=== PATIENT | female | born 1980 | race Caucasian/White ===

== ENCOUNTER 2018-06-17 17:21 | Inpatient (IN) | payer MEDICAID, OTHER ==
[2018-06-17] MEDS ORDERED: BRETHINE SUB-Q PRN (19:01)
[2018-06-17] MEDS ORDERED: BRETHINE IVP PRN (19:01)
[2018-06-17] MEDS ORDERED: XYLOCAINE 2% INFILTRATI ONE (19:01)
[2018-06-17] MEDS ORDERED: NARCAN 0.4 MG/1 ML IV PRN (19:01)
[2018-06-17] MEDS ORDERED: STADOL IV PRN (19:01)
[2018-06-17] MEDS ORDERED: MINERAL OIL PO PRN (19:01)
[2018-06-17] MEDS ORDERED: NORMODYNE IV ONE (19:05)
--- NOTE | 2018-06-17 19:11 | History and Physical Report ---
History of Present Illness Date of examination: 06/17/18 Date of admission: 06/17/18 Chief complaint: SIUP at 38 weeks with superimposed pre-eclampsia History of present illness: Patient is a 38 year old , LMP 09/04/17, EDC 06/19/18 at 38 weeks and 2 days gestation who presented to triage complaining of having severe headache and blurry since early this AM. She has a history of chronic HTN and is not on any medication. She receives PNC at [facility] clinic. In triage, her BP was 177/109. She denies any fluid leakage or bleeding. She reports good movement. tracing is CAT1. Cervix: 3 cm/60%/-2. Her Quad screen was positive for Trisomy 18. She was referred to [facility], but she declined amniocentesis. Past History Past Medical History: hypertension Past Surgical History: no surgical history Family/Genetic History: none Social history: no significant social history - Obstetrical History Expected Date of Delivery: 06/29/18 Actual Gestation: 38 Week(s) 2 Day(s) : 7 Para: 3 Spontaneous Abortions: 3 Number of Living Children: 3 Medications and Allergies Allergies Allergy/AdvReac Type Severity Reaction Status Date / Time Penicillins Allergy Itching Verified 06/17/18 19:17 - Vital Signs Vital signs: Vital Signs Pulse BP 95 H 177/109 06/17/18 18:42 06/17/18 18:42 Temp Pulse Resp BP Pulse Ox 94 H 153/84 06/17/18 18:57 06/17/18 18:57 - Physical Exam Cardiovascular: Normal S1, Normal S2 Lungs: Positive: Clear to auscultation Vulva: both: normal Deep Tendon Reflex Grade: Normal but brisk +3 - Obstetrical FHR: category 1 Uterine Contraction Monitor Mode: External Cervical Dilatation: 3 Cervical Effacement Percentage: 60 station: -2 Uterine Contraction Pattern: Irregular Uterine Contraction Intensity: Moderate Results Result Diagrams: 06/17/18 19:00 06/17/18 19:00 All other labs normal. Assessment and Plan - Patient Problems (1) 38 weeks gestation of Current Visit: Yes Status: Acute (2) Pre-eclampsia added to pre-existing hypertension Current Visit: Yes Status: Acute Plan to address problem: Admit to labor floor. IV hydration. Toxemia labs. Magnesium sulfate STAT. Monitor Mg levels, urine output, DTRs. Labetolol IV for diastolic BP>100. Labetolol PO 200 mg BID for BP control. monitoring. Will induce labor with pitocin. (3) Positive GBS test Current Visit: Yes Status: Acute Plan to address problem: Allergic to PCN. Will give clindamycin IV. (4) Advanced maternal age (AMA) in Current Visit: Yes Status: Acute (5) Abnormal quad screen Current Visit: Yes Status: Acute Plan to address problem: Patient was offered referral to [facility], but she declined amniocentesis.
[2018-06-17 19:25] LABS: Bacteria,Urine 3+ /HPF (Negative); Bilirubin,Urine NEG (Negative); Blood,Urine NEG (Negative); Calcium Oxalate Crystals,Urine 1+; Color,Urine Yellow (Yellow); Mucus,Urine FEW /HPF; Urobilinogen,Urine < 2.0 mg/dL (<2.0)
[2018-06-17 19:57] LABS: Hematocrit 37.7 % (30.3-42.9); Hemoglobin 12.2 gm/dl (10.1-14.3); Mean Corpuscular HGB Conc 32 % (30-34); Mean Corpuscular Volume 79 fl (79-97); Platelet Count 190 K/mm3 (140-440); Red Blood Count 4.74 M/mm3 (3.65-5.03); Red Cell Distribution Width 15.2 % (13.2-15.2)
[2018-06-17] MEDS ORDERED: PITOCin/NS 30 UNIT/500ML 30 UNITS/500 ML BAG IV SCH ×2 (20:00)
[2018-06-17] MEDS ORDERED: PITOCin/NS 20 UNIT/1000ML DRIP 20 UNITS/1,000 ML BAG IV SCH (20:00)
[2018-06-17] MEDS ORDERED: MAGNESIUM SULFATE 40GM/1000ML 40 GM/1,000 ML BAG IV SCH (20:10)
[2018-06-17] MEDS ORDERED: MAGNESIUM SULFATE 4GM/100ML 4 GM/100 ML BAG IV ONE (20:10)
[2018-06-17 20:20] LABS: Alanine Aminotransferase 6 units/L (7-56); Uric Acid 4.9 mg/dL (3.5-7.6)
[2018-06-17] MEDS: NORMODYNE PO SCH (20:22)
[2018-06-17] MEDS: LACTATED RINGERS 1,000 ML IV SCH (20:24)
[2018-06-17] MEDS: CLEOCIN 900 MG/50 mL 900 MG/50 ML BAG IV SCH (20:24)
[2018-06-17] MEDS ORDERED: PERCOCET 5/325 PO ONE (23:27)
[2018-06-18] MEDS: CLEOCIN 900 MG/50 mL 900 MG/50 ML BAG IV SCH (04:31)
[2018-06-18] MEDS: LACTATED RINGERS 1,000 ML IV SCH (06:12)
--- NOTE | 2018-06-18 08:41 | Progress Note ---
Assessment and Plan A: IUP @ 38 1/7 Weeks Category I Tracing CHTN with Superimposed PIH Meconium Stained Fluids GBS Positive P: AROM Continue Pitocin Induction Continue GBS Prophylaxis Continue MagSO4 Subjective - Subjective Date of service: 06/18/18 Patient reports: movement normal, contractions, other (States she desires natural labor and delivery; declines IV pain meds and epidural) Objective - Vital Signs Vital Signs: Vital Signs - 12hr 06/17/18 06/17/18 06/17/18 20:38 20:39 20:40 Temperature Pulse Rate 100 H 109 H 104 H Respiratory Rate Blood Pressure 174/83 140/89 Blood Pressure [Right] O2 Sat by Pulse 98 Oximetry 06/17/18 06/17/18 06/17/18 20:44 20:45 20:49 Temperature Pulse Rate 109 H 106 H 106 H Respiratory Rate Blood Pressure 139/81 Blood Pressure [Right] O2 Sat by Pulse 98 98 Oximetry 06/17/18 06/17/18 06/17/18 20:50 20:54 20:55 Temperature Pulse Rate 103 H 100 H 100 H Respiratory Rate Blood Pressure 156/81 146/78 Blood Pressure [Right] O2 Sat by Pulse 98 Oximetry 06/17/18 06/17/18 06/17/18 20:59 21:01 21:04 Temperature Pulse Rate 100 H 101 H 95 H Respiratory Rate Blood Pressure 154/83 Blood Pressure [Right] O2 Sat by Pulse 99 98 Oximetry 06/17/18 06/17/18 06/17/18 21:06 21:09 21:10 Temperature Pulse Rate 102 H 100 H 95 H Respiratory Rate Blood Pressure 134/78 150/83 Blood Pressure [Right] O2 Sat by Pulse 99 Oximetry 06/17/18 06/17/18 06/17/18 21:14 21:15 21:19 Temperature Pulse Rate 104 H 102 H 99 H Respiratory Rate Blood Pressure 150/82 Blood Pressure [Right] O2 Sat by Pulse 98 99 Oximetry 06/17/18 06/17/18 06/17/18 21:21 21:24 21:28 Temperature Pulse Rate 101 H 104 H 96 H Respiratory Rate Blood Pressure 152/89 135/77 Blood Pressure [Right] O2 Sat by Pulse 99 Oximetry 06/17/18 06/17/18 06/17/18 21:29 21:32 21:34 Temperature Pulse Rate 99 H 97 H 99 H Respiratory Rate Blood Pressure 143/79 Blood Pressure [Right] O2 Sat by Pulse 98 98 Oximetry 06/17/18 06/17/18 06/17/18 21:37 21:39 21:40 Temperature Pulse Rate 93 H 97 H 93 H Respiratory Rate Blood Pressure 141/81 142/79 Blood Pressure [Right] O2 Sat by Pulse 97 Oximetry 06/17/18 06/17/18 06/17/18 21:44 21:49 21:54 Temperature Pulse Rate 96 H 91 H 92 H Respiratory Rate Blood Pressure Blood Pressure [Right] O2 Sat by Pulse 99 98 98 Oximetry 06/17/18 06/17/18 06/17/18 21:56 21:59 22:04 Temperature Pulse Rate 77 61 89 Respiratory Rate Blood Pressure 95/50 Blood Pressure [Right] O2 Sat by Pulse 97 97 Oximetry 06/17/18 06/17/18 06/17/18 22:09 22:11 22:14 Temperature Pulse Rate 81 73 88 Respiratory Rate Blood Pressure 87/47 Blood Pressure [Right] O2 Sat by Pulse 97 97 Oximetry 06/17/18 06/17/18 06/17/18 22:19 22:24 22:25 Temperature Pulse Rate 87 81 80 Respiratory Rate Blood Pressure 88/49 Blood Pressure [Right] O2 Sat by Pulse 97 97 Oximetry 06/17/18 06/17/18 06/17/18 22:26 22:29 22:34 Temperature Pulse Rate 78 81 86 Respiratory Rate Blood Pressure 84/49 Blood Pressure [Right] O2 Sat by Pulse 97 97 Oximetry 06/17/18 06/17/18 06/17/18 22:39 22:41 22:44 Temperature Pulse Rate 89 84 88 Respiratory Rate Blood Pressure 109/57 Blood Pressure [Right] O2 Sat by Pulse 98 96 Oximetry 06/17/18 06/17/18 06/17/18 22:49 22:54 22:59 Temperature Pulse Rate 87 88 88 Respiratory Rate Blood Pressure Blood Pressure [Right] O2 Sat by Pulse 97 97 98 Oximetry 06/17/18 06/17/18 06/17/18 23:04 23:09 23:13 Temperature Pulse Rate 86 80 79 Respiratory Rate Blood Pressure 118/63 Blood Pressure [Right] O2 Sat by Pulse 97 97 Oximetry 06/17/18 06/17/18 06/17/18 23:14 23:19 23:24 Temperature Pulse Rate 83 77 81 Respiratory Rate Blood Pressure Blood Pressure [Right] O2 Sat by Pulse 97 97 97 Oximetry 06/17/18 06/17/18 06/17/18 23:29 23:34 23:39 Temperature Pulse Rate 90 88 95 H Respiratory Rate Blood Pressure Blood Pressure [Right] O2 Sat by Pulse 97 95 97 Oximetry 06/17/18 06/17/18 06/17/18 23:44 23:49 23:51 Temperature 97.1 F L Pulse Rate 87 89 85 Respiratory 18 Rate Blood Pressure 106/59 Blood Pressure 109/57 [Right] O2 Sat by Pulse 97 95 Oximetry 06/17/18 06/17/18 06/17/18 23:53 23:54 23:58 Temperature Pulse Rate 85 84 92 H Respiratory Rate Blood Pressure 109/57 Blood Pressure [Right] O2 Sat by Pulse 96 93 Oximetry 06/18/18 06/18/18 06/18/18 00:54 01:53 02:53 Temperature Pulse Rate 86 90 93 H Respiratory Rate Blood Pressure 124/68 122/68 121/67 Blood Pressure [Right] O2 Sat by Pulse Oximetry 06/18/18 06/18/18 06/18/18 03:53 04:29 04:30 Temperature 96.7 F L Pulse Rate 94 H 98 H 98 H Respiratory 18 Rate Blood Pressure 143/82 166/70 Blood Pressure 166/70 [Right] O2 Sat by Pulse Oximetry 06/18/18 06/18/18 06/18/18 04:53 05:53 06:53 Temperature Pulse Rate 111 H 100 H 101 H Respiratory Rate Blood Pressure 128/75 133/76 119/70 Blood Pressure [Right] O2 Sat by Pulse Oximetry 06/18/18 06/18/18 06/18/18 07:29 07:59 08:30 Temperature 97.4 F L Pulse Rate 70 96 H 96 H Respiratory Rate Blood Pressure 139/66 149/84 138/90 Blood Pressure [Right] O2 Sat by Pulse Oximetry - Exam Breasts: normal Cardiovascular: Regular rate Lungs: Clear to auscultation, Normal air movement Abdomen: Present: normal appearance, soft Uterus: Present: normal, firm, fundal height above umbilicus FHR: category 1 Uterine Contraction Monitor Mode: External Cervical Dilatation: 4 (Moderate amount of thin meconium stained fluids upon AROM at 0823) Cervical Effacement Percentage: 70 station: 2 Uterine Contraction Frequency (min): 2 Uterine Contraction Pattern: Regular Uterine Tone Measurement Phase: Resting Uterine Contraction Intensity: Moderate Extremities: normal - Labs Labs: Abnormal Labs 06/17/18 06/17/18 06/17/18 18:20 19:00 19:00 MCH 26 L Creatinine 0.3 L Magnesium ALT 6 L Urine WBC (Auto) 8.0 H U Epithel Cells (Auto) 18.0 H 06/18/18 01:22 MCH Creatinine Magnesium 4.00 H ALT Urine WBC (Auto) U Epithel Cells (Auto) Laboratory Results - last 24 hr 06/17/18 06/17/18 06/17/18 18:20 19:00 19:00 WBC 9.0 RBC 4.74 Hgb 12.2 Hct 37.7 MCV 79 MCH 26 L MCHC 32 RDW 15.2 Plt Count 190 Creatinine Estimated GFR Uric Acid Magnesium AST ALT Lactate Dehydrogenase Urine Color Yellow Urine Turbidity Slightly-cloudy Urine pH 6.0 Ur Specific [place] 1.017 Urine Protein 30 mg/dl Urine Glucose (UA) Neg Urine Ketones Neg Urine Blood Neg Urine Nitrite Neg Urine Bilirubin Neg Urine Urobilinogen < 2.0 Ur Leukocyte Esterase Mod Urine WBC (Auto) 8.0 H Urine RBC (Auto) 4.0 U Epithel Cells (Auto) 18.0 H Urine Bacteria (Auto) 3+ Calcium Oxalate Crystal 1+ Urine Mucus Few Blood Type B POSITIVE Antibody Screen Negative 06/17/18 06/18/18 19:00 01:22 WBC RBC Hgb Hct MCV MCH MCHC RDW Plt Count Creatinine 0.3 L Estimated GFR > 60 Uric Acid 4.9 Magnesium 4.00 H AST 11 ALT 6 L Lactate Dehydrogenase 148 Urine Color Urine Turbidity Urine pH Ur Specific [place] Urine Protein Urine Glucose (UA) Urine Ketones Urine Blood Urine Nitrite Urine Bilirubin Urine Urobilinogen Ur Leukocyte Esterase Urine WBC (Auto) Urine RBC (Auto) U Epithel Cells (Auto) Urine Bacteria (Auto) Calcium Oxalate Crystal Urine Mucus Blood Type Antibody Screen
--- NOTE | 2018-06-18 10:19 | Procedure Note ---
OB Delivery Note - Delivery Date of Delivery: 06/18/18 (0955) Surgeon: RENEE CHRISTOPHER Estimated blood loss: 200cc - Vaginal Delivery presentation: vertex Delivery position: OA Intrapartum events: meconium, preeclampsia Delivery induction: oxytocin Delivery augmentation: rupture of membranes, pitocin Delivery monitor: external FHT, external uterine Route of delivery: Delivery placenta: spontaneous Delivery cord: 3 umbilical vessels Episiotomy: none Delivery laceration: none Anesthesia: none Delivery comments: of a live 7'10 female infant over a intact perineum without pain control with Apgars of 8 and 9 at 0955 on 06/18/2018. directly to maternal abd/chest, skin to skin contact. Spontaneous delivery of placenta complete and intact with [place] side presenting at 0958. Fundus is firm and midline located 4 below the U. Lochia is scant. Delayed cord clamping and cutting; Cord cut by the Father of the Baby. Placenta discarded. GBS + treated x 3 doses. - Infant A at 1 minute: 8 at 5 minutes: 9 (7'10) Gender: Female (7'10)
[2018-06-18] MEDS ORDERED: BENADRYL PO PRN (11:00)
[2018-06-18] MEDS: NORMODYNE PO SCH ×2 (11:00→22:17)
[2018-06-18] MEDS ORDERED: SODIUM CHLORIDE FLUSH SYRINGE 10 ML IV PRN (11:00)
[2018-06-18] MEDS ORDERED: NORCO 5/325 PO PRN (11:00)
[2018-06-18] MEDS ORDERED: TUCKS PAD TP PRN (11:00)
[2018-06-18] MEDS ORDERED: MAGNESIUM SULFATE 40GM/1000ML 40 GM/1,000 ML BAG IV SCH (11:00)
[2018-06-18] MEDS ORDERED: CYTOTEC ONE (11:04)
[2018-06-18] MEDS ORDERED: HEMABATE IM ONE (12:22)
--- NOTE | 2018-06-18 15:21 | Progress Note ---
Assessment and Plan - Patient Problems (1) 38 weeks gestation of Current Visit: Yes Status: Acute (2) Pre-eclampsia added to pre-existing hypertension Current Visit: Yes Status: Acute Plan to address problem: Continue Magnesium for 24 hrs. Monitor Mg levels, urine output, DTRs. Continue labetolol 200 mg BID for BP control. (3) Positive GBS test Current Visit: Yes Status: Acute Plan to address problem: Allergic to PCN. Will give clindamycin IV. (4) Advanced maternal age (AMA) in Current Visit: Yes Status: Acute (5) Abnormal quad screen Current Visit: Yes Status: Acute Plan to address problem: Patient was offered referral to [facility], but she declined amniocentesis. Subjective - Subjective Date of service: 06/18/18 Principal diagnosis: S/P , pre-eclampsia Interval history: Patient is a 38 year old who is S/P this AM after she was induced for superimposed pre-eclampsia. She is on magnesium sulfate at 2 gm/hr. Her urine output is adequate. She denies any headache, visual changes, or respiratory difficulties currently. Her BP has been stable. Objective - Vital Signs Latest vital signs: Vital Signs Temp Pulse Resp BP BP Pulse Ox 06/18/18 14:46 89 121/68 06/18/18 14:16 92 H 127/69 06/18/18 13:46 87 128/68 06/18/18 13:16 91 H 122/63 06/18/18 12:46 95 H 138/74 06/18/18 12:16 89 138/79 06/18/18 11:46 85 147/78 06/18/18 11:16 87 140/74 06/18/18 10:46 93 H 148/76 06/18/18 10:17 102 H 130/77 06/18/18 09:30 94 H 123/70 06/18/18 09:01 93 H 138/73 06/18/18 08:30 96 H 138/90 06/18/18 07:59 96 H 149/84 06/18/18 07:29 97.4 F L 70 139/66 06/18/18 06:53 101 H 119/70 06/18/18 05:53 100 H 133/76 06/18/18 04:53 111 H 128/75 06/18/18 04:30 98 H 166/70 06/18/18 04:29 96.7 F L 98 H 18 166/70 06/18/18 03:53 94 H 143/82 06/18/18 02:53 93 H 121/67 06/18/18 01:53 90 122/68 06/18/18 00:54 86 124/68 06/17/18 23:58 92 H 93 06/17/18 23:54 84 96 06/17/18 23:53 85 109/57 06/17/18 23:51 97.1 F L 85 18 109/57 06/17/18 23:49 89 95 06/17/18 23:44 87 106/59 97 06/17/18 23:39 95 H 97 06/17/18 23:34 88 95 06/17/18 23:29 90 97 06/17/18 23:24 81 97 06/17/18 23:19 77 97 06/17/18 23:14 83 97 06/17/18 23:13 79 118/63 06/17/18 23:09 80 97 06/17/18 23:04 86 97 06/17/18 22:59 88 98 06/17/18 22:54 88 97 06/17/18 22:49 87 97 06/17/18 22:44 88 96 06/17/18 22:41 84 109/57 06/17/18 22:39 89 98 06/17/18 22:34 86 97 06/17/18 22:29 81 97 06/17/18 22:26 78 84/49 06/17/18 22:25 80 88/49 06/17/18 22:24 81 97 06/17/18 22:19 87 97 06/17/18 22:14 88 97 06/17/18 22:11 73 87/47 06/17/18 22:09 81 97 06/17/18 22:04 89 97 06/17/18 21:59 61 97 06/17/18 21:56 77 95/50 06/17/18 21:54 92 H 98 06/17/18 21:49 91 H 98 06/17/18 21:44 96 H 99 06/17/18 21:40 93 H 142/79 06/17/18 21:39 97 H 97 06/17/18 21:37 93 H 141/81 02/13/19 21:34 99 H 98 06/17/18 21:32 97 H 143/79 06/17/18 21:29 99 H 98 06/17/18 21:28 96 H 135/77 06/17/18 21:24 104 H 99 06/17/18 21:21 101 H 152/89 06/17/18 21:19 99 H 99 06/17/18 21:15 102 H 150/82 06/17/18 21:14 104 H 98 06/17/18 21:10 95 H 150/83 06/17/18 21:09 100 H 99 06/17/18 21:06 102 H 134/78 06/17/18 21:04 95 H 98 06/17/18 21:01 101 H 154/83 06/17/18 20:59 100 H 99 06/17/18 20:55 100 H 146/78 06/17/18 20:54 100 H 98 06/17/18 20:50 103 H 156/81 06/17/18 20:49 106 H 98 06/17/18 20:45 106 H 139/81 06/17/18 20:44 109 H 98 06/17/18 20:40 104 H 140/89 06/17/18 20:39 109 H 98 06/17/18 20:38 100 H 174/83 06/17/18 20:34 99 H 98 06/17/18 20:29 110 H 98 06/17/18 20:24 101 H 99 06/17/18 20:22 96 H 169/95 06/17/18 20:19 95 H 99 06/17/18 20:14 102 H 99 06/17/18 20:06 97.0 F L 92 H 18 169/95 169/95 99 06/17/18 20:01 105 H 98 06/17/18 19:56 92 H 98 06/17/18 19:51 92 H 98 06/17/18 19:21 90 176/93 06/17/18 18:57 94 H 153/84 06/17/18 18:48 96 H 167/95 06/17/18 18:42 95 H 177/109 Intake and Output 06/17/18 06/18/18 06/18/18 23:59 07:59 15:59 Intake Total 50 1015.400 Output Total 90 360 Balance -40 655.400 Intake: IV 50 1015.400 CLEOCIN 900 MG/50 mL 900 50 mg In 50 ml @ 100 mls/hr IV Q8H [facility] Rx#:[id number] Lactated Ringers 1,000 ml 1000 @ 125 mls/hr IV DIRECT WOO Rx#:[id number] PITOCin/NS 30 UNIT/500ML 15.400 30 units In 500 ml @ Per Protocol IV TITR WOO Rx#: [id number] Output: Urine 90 360 Indwelling Catheter 90 360 Other: Total, Output Amount 30 50 Weight 97.976 kg Estimated Blood Loss 200 - Exam Cardiovascular: Present: Normal S1, Normal S2 Lungs: Present: Clear to auscultation Vulva: both: normal Deep Tendon Reflex Grade: Normal +2 - Labs Labs: Abnormal lab results 06/17/18 06/17/18 06/17/18 Range/Units 18:20 19:00 19:00 MCH 26 L (28-32) pg Creatinine 0.3 L (0.7-1.2) mg/dL Magnesium (1.7-2.3) mg/dL ALT 6 L (7-56) units/L Urine WBC (Auto) 8.0 H (0.0-6.0) /HPF U Epithel Cells (Auto) 18.0 H (0-13.0) /HPF 06/18/18 06/18/18 06/18/18 Range/Units 01:22 08:15 14:36 MCH (28-32) pg Creatinine (0.7-1.2) mg/dL Magnesium 4.00 H 4.50 H 4.40 H (1.7-2.3) mg/dL ALT (7-56) units/L Urine WBC (Auto) (0.0-6.0) /HPF U Epithel Cells (Auto) (0-13.0) /HPF
[2018-06-18 23:20] LABS: Hematocrit 32.5 % (30.3-42.9); Hemoglobin 10.5 gm/dl (10.1-14.3)
[2018-06-19] MEDS: NORMODYNE PO SCH (10:08)
--- NOTE | 2018-06-19 11:27 | Progress Note ---
Assessment and Plan (1) Normal vaginal delivery Current Visit: Yes Status: Acute PPD#1 s/p Stable Anticipate discharge in 24-48 hrs (2) Pre-eclampsia added to pre-existing hypertension Current Visit: Yes Status: Acute Plan to address problem: Magnesium for 24 hrs (discontinued this am. Discontinue paniagua catheter. VSS stable. Continue labetolol 200 mg BID for BP control. Subjective - Subjective Date of service: 06/19/18 Principal diagnosis: PPD#1 S/P , pre-eclampsia Interval history: See H&P and delivery note Patient reports: appetite normal, pain well controlled, flatus, ambulating normally, no voiding normally ([place] catheter at bedside. Draining clear light yellow urine), no bowel movement [place]: doing well Objective - Vital Signs Latest vital signs: Vital Signs Temp Pulse Resp BP BP Pulse Ox 06/19/18 11:10 98.4 F 87 18 146/82 06/19/18 10:08 90 122/68 06/19/18 09:29 90 122/68 06/19/18 08:29 87 121/66 06/19/18 07:34 97.1 F L 90 18 135/64 135/64 97 06/19/18 07:29 88 136/66 06/19/18 06:29 81 18 118/62 118/62 06/19/18 05:29 82 18 131/62 131/62 06/19/18 04:29 97.0 F L 76 18 107/55 107/55 06/19/18 03:29 85 18 105/59 105/59 06/19/18 02:29 89 103/59 06/19/18 01:29 83 92/53 06/19/18 00:29 97.2 F L 85 18 108/60 108/60 06/18/18 23:29 86 18 135/68 135/64 06/18/18 22:17 93 H 137/73 06/18/18 22:16 93 H 18 137/73 137/73 06/18/18 21:46 84 18 127/68 123/70 06/18/18 21:16 84 123/70 06/18/18 20:46 86 18 111/68 06/18/18 20:17 90 156/72 06/18/18 19:46 97.0 F L 85 18 128/74 127/74 06/18/18 19:16 90 140/75 06/18/18 18:46 85 126/86 06/18/18 18:16 91 H 142/87 06/18/18 17:46 89 125/73 06/18/18 17:17 88 135/63 06/18/18 16:46 86 142/85 06/18/18 16:16 86 131/75 06/18/18 16:00 98.0 F 06/18/18 15:46 84 122/72 06/18/18 15:16 94 H 128/78 06/18/18 14:46 89 121/68 06/18/18 14:16 92 H 127/69 06/18/18 13:46 87 128/68 06/18/18 13:16 91 H 122/63 06/18/18 12:46 95 H 138/74 06/18/18 12:16 89 138/79 06/18/18 12:00 97.6 F 06/18/18 11:46 85 147/78 Intake and Output 06/18/18 06/19/18 06/19/18 23:59 07:59 15:59 Intake Total 400 200 120 Output Total 2200 1450 600 Balance -1800 -1250 -480 Intake: Oral 400 200 120 Output: Urine 2200 1450 600 Indwelling Catheter 1400 500 600 Uretheral (Pani[place]) 800 950 Other: Total, Intake Amount 100 100 120 Total, Output Amount 200 300 600 - Exam Breasts: Present: normal Cardiovascular: Present: Regular rate, Normal S1, Normal S2, No murmurs Lungs: Present: Clear to auscultation, Normal air movement Abdomen: Present: normal appearance, soft, normal bowel sounds. Absent: distention Uterus: Present: firm, fundal height at umbilicus Extremities: Present: normal Deep Tendon Reflex Grade: Normal +2 - Labs Labs: Abnormal lab results 06/18/18 06/18/18 Range/Units 14:36 20:30 Magnesium 4.40 H 4.80 H (1.7-2.3) mg/dL
[2018-06-20] MEDS ORDERED: BOOSTRIX IM ONE (06:00)
--- NOTE | 2018-06-20 10:40 | Progress Note ---
Assessment and Plan A: day 2 S/P spontaneous vaginal delivery. Anemia. Chronic hypertension, on Labetalol. Preeclampsia with severe features prior to delivery. P: Supplement with iron. Continue Labetalol BID for hypertension. Anticipate discharge tomorrow. Subjective - Subjective Date of service: 06/20/18 Principal diagnosis: PPD#2 S/P , pre-eclampsia Interval history: day 2 S/P spontaneous vaginal delivery and preeclampsia with severe features. Patient is voiding without difficulty. She is tolerating a regular diet without nausea or vomiting. She is ambulating well. Patient is taking Labetalol BID. Patient denies headache, visual disturbance, dizziness, chest pain, cough, shortness of breath, leg pain, abdominal pain, or heavy bleeding. Patient reports: appetite normal, voiding normally, pain well controlled, flatus, ambulating normally, no dizzy ambulation, no nauseated : doing well Objective - Vital Signs Latest vital signs: Vital Signs Temp Pulse Resp BP 06/20/18 05:54 18 06/20/18 00:00 98.7 F 64 18 104/68 06/19/18 19:30 98.6 F 74 18 114/68 06/19/18 16:05 97.9 F 94 H 18 120/81 06/19/18 11:10 98.4 F 87 18 146/82 Intake and Output 06/19/18 06/20/18 06/20/18 23:59 07:59 15:59 Intake Total 540 200 Balance 540 200 Intake: Oral 240 200 Intake, Free Water 300 Other: Total, Intake Amount 240 200 - Exam Cardiovascular: Present: Regular rate, Normal S1, Normal S2 Lungs: Present: Clear to auscultation Abdomen: Present: normal appearance, soft, normal bowel sounds. Absent: distention, tenderness, guarding, rigidity Uterus: Present: normal, firm, fundal height below umbilicus. Absent: bogginess, tenderness Extremities: Present: normal, edema (mild bilateral pedal edema). Absent: tenderness
[2018-06-20] MEDS ORDERED: NORMODYNE PO SCH (18:32)
[2018-06-20 20:31] LABS: Hematocrit 30.7 % (30.3-42.9); Hemoglobin 10.1 gm/dl (10.1-14.3); Mean Corpuscular HGB Conc 33 % (30-34); Mean Corpuscular Volume 79 fl (79-97); Platelet Count 202 K/mm3 (140-440); Red Cell Distribution Width 15.2 % (13.2-15.2)
--- NOTE | 2018-06-20 20:39 | Event Note ---
Date: 06/20/18 BPs increasing. Patient denies headache, chest pain, shortness of breath, or visual disturbance. Patient to take Labetalol 200 mg po BID. Consulted with Dr. Chicas re: this patient and he states no need to restart mag at this time. Spoke with patient's nurse and also informed her of this plan of care and advised nurse to contact provider if BPs remain elevated or if any other symptoms develop.
[2018-06-20] MEDS ORDERED: NORMODYNE PO ONE (20:41)
[2018-06-20 20:53] LABS: Alanine Aminotransferase 7 units/L (7-56); Albumin 3.2 g/dL (3.9-5); BUN/Creatinine Ratio 20; Blood Urea Nitrogen 6 mg/dL (7-17); Calcium 8.8 mg/dL (8.4-10.2); Hemolysis Index 11; Uric Acid 6.5 mg/dL (3.5-7.6)
[2018-06-20] MEDS: FEOSOL PO SCH ×2 (20:54→23:02)
[2018-06-20 21:53] LABS: Bilirubin,Urine NEG (Negative); Blood,Urine LG (Negative); Color,Urine Straw (Yellow); Urobilinogen,Urine < 2.0 mg/dL (<2.0)
[2018-06-20] MEDS: NORMODYNE PO SCH (22:00)
[2018-06-21] MEDS: NORMODYNE PO SCH (05:19)
[2018-06-21 10:22] VITALS: BP 139/86
[2018-06-21] MEDS: FEOSOL PO SCH (10:36)
--- NOTE | 2018-06-21 10:54 | Progress Note ---
Assessment and Plan A: day 3 S/P spontaneous vaginal delivery. Anemia secondary to and blood loss. Chronic hypertension (with superimposed preeclampsia during late ). P: Discharge patient home today. Advised patient to continue vitamins and iron supplements at home. Advised patient to continue taking Labetalol 200 mg PO BID and Rx for Labetalol 200 mg po BID was called to [facility] in [place], [place]. discharge instructions and warning signs were discussed with patient in detail. BP warning signs were discussed with patient. Advised patient to avoid driving, lifting and heavy housework, intercourse, and tub baths (may take showers). Advised patient to follow up at [facility] for BP check this week (by 06/25/18). Advised patient to return promptly if any problems. Patient voiced understanding of all instructions. Consulted with Dr. Chicas re: this patient and he agreed that patient could be discharged home today. Subjective - Subjective Date of service: 06/21/18 Principal diagnosis: PPD#3 S/P Interval history: day 3 S/P spontaneous vaginal delivery. complicated by chronic hypertension with superimposed preeclampsia. Patient is doing well. BPs are stable on Labetalol 200 mg po BID. Patient is voiding without difficulty, ambulating well, tolerating a regular diet without nausea or vomiting. Patient reports small amount of lochia. Patient denies headache, visual disturbance, chest pain, cough, shortness of breath, dizziness, leg pain, abdominal pain, or heavy bleeding. Patient reports: appetite normal, voiding normally, pain well controlled, flatus, ambulating normally, no dizzy ambulation, no nauseated [place]: doing well Objective - Vital Signs Latest vital signs: Vital Signs Temp Pulse Resp BP BP Pulse Ox 06/21/18 09:15 98.3 F 106 H 18 139/86 06/21/18 05:19 88 138/79 06/21/18 04:00 98.7 F 81 16 133/75 06/20/18 23:30 98.7 F 69 18 141/76 06/20/18 21:00 98.6 F 62 18 145/79 06/20/18 20:50 95 H 152/92 06/20/18 19:23 91 H 152/96 06/20/18 15:03 98.3 F 91 H 24 164/90 96 Intake and Output 02/06/21/18 06/21/18 23:59 07:59 15:59 Intake Total 300 120 Balance 300 120 Intake: Oral 120 Intake, Free Water 300 Other: Total, Intake Amount 120 - Exam Narrative Exam: Manual pulse taken 96 bpm and regular. Cardiovascular: Present: Regular rate, Normal S1, Normal S2 Lungs: Present: Clear to auscultation Abdomen: Present: normal appearance. Absent: soft, tenderness, guarding, rigidity Uterus: Present: normal, firm, fundal height below umbilicus. Absent: bogginess, tenderness Extremities: Present: normal. Absent: tenderness, edema - Labs Labs: Abnormal lab results 06/20/18 06/20/18 06/20/18 Range/Units 20:01 20:01 20:54 MCH 26 L (28-32) pg BUN 6 L (7-17) mg/dL Creatinine 0.3 L (0.7-1.2) mg/dL Glucose 113 H (65-100) mg/dL Alkaline Phosphatase 141 H (35-129) units/L Albumin 3.2 L (3.9-5) g/dL Urine pH 8.0 H (5.0-7.0) Ur Specific [place] 1.002 L (1.003-1.030) Urine WBC (Auto) 17.0 H (0.0-6.0) /HPF
--- NOTE | 2018-06-21 11:00 | Discharge Summary ---
Providers - Providers Date of Admission: 06/17/18 19:39 Date of discharge: 06/21/18 Attending physician: JONATHON KNIGHT MD None Primary care physician: JONATHON KNIGHT MD Hospitalization Reason for admission: induction of labor Delivery: Episiotomy: none Laceration: none Other procedures: none complications: none Discharge diagnosis: IUP at term delivered [place] baby: female Pertinent studies: Labs Hospital course: Normal hospital course. Condition at discharge: Good Disposition: DC-01 TO HOME OR SELFCARE - Discharge Diagnoses (1) Term delivered Status: Acute (2) Anemia due to blood loss, acute Status: Acute Plan - Provider Discharge Summary Activity: routine, no sex for 6 weeks, no heavy lifting 4 weeks, no strenuous exercise Diet: routine Instructions: routine Additional instructions: Please continue taking your vitamins and iron supplements at home. Take Labetalol 200 mg by mouth every 12 hours at home (Rx has been called in to [facility] in [place], [place]). Call your doctor immediately for: * Fever > 100.5 * Heavy vaginal bleeding ( >1 pad per hour) * Severe persistent headache * Shortness of breath * Reddened, hot, painful area to leg or breast - Follow up plan Follow up: JONATHON KNIGHT MD [Primary Care Provider] - 06/25/18
[2018-06-21] MEDS ORDERED: AFLURIA QUAD 2018-2019 SYRINGE IM ONE (12:00)
== END 2018-06-21 13:40 | disposition home or self-care (01) | DRG 806 ==
LOC: TRG 17:21 → LD 19:39 → OB 06-19 11:24
PROVIDERS: ADMIT Obstetrics & Gynecology; ATTEND Obstetrics & Gynecology
PROC: 10E0XZZ Delivery of Products of Conception, External Approach (ICD-10-PCS; principal; 2018-06-18)
PROC: 3E033VJ Introduction of Other Hormone into Peripheral Vein, Percutaneous Approach (ICD-10-PCS; 2018-06-18)
PROC: 3E0234Z Introduction of Serum, Toxoid and Vaccine into Muscle, Percutaneous Approach (ICD-10-PCS; 2018-06-20)
DX: O77.0 Labor and delivery complicated by meconium in amniotic fluid (principal); D62 Acute posthemorrhagic anemia; Z37.0 Single live birth; Z3A.38 38 weeks gestation of pregnancy; O99.824 Streptococcus B carrier state complicating childbirth; Z23 Encounter for immunization; O13.4 Gestational [pregnancy-induced] hypertension without significant proteinuria, complicating childbirth; O14.14 Severe pre-eclampsia complicating childbirth; O99.02 Anemia complicating childbirth; Z88.0 Allergy status to penicillin
CPT/HCPCS: 36415; 80053; 81001; 82565; 83615; 83735; 84450; 84460; 84550; 85014; 85018; 85027; 86592; 86850; 86900; 86901; 90471; 90686; 90715; G0378; G0008; J2590; J3475; J7120

== ENCOUNTER 2021-02-11 20:07 | Emergency (ER) | payer MEDICAID ==
[2021-02-11] MEDS ORDERED: FAMOTIDINE 20 MG/2 ML INJ IV ONE (20:51)
[2021-02-11] MEDS ORDERED: ONDANSETRON 4 MG/2 ML INJ IV ONE (20:51)
[2021-02-11] MEDS ORDERED: MORPHINE 4 MG/1 ML INJ IV ONE (20:51)
--- NOTE | 2021-02-11 21:32 | Emergency Department Report ---
ED Abdominal Pain HPI - General Chief Complaint: Abdominal Pain Stated Complaint: 16 WKS PREG/BACK/ABD PAIN Source: patient Mode of arrival: Ambulatory Limitations: No Limitations - History of Present Illness Initial Comments: Patient is a A0 40-year-old female with no past medical history and who is approximately 16 weeks gestation presents to the ED with complaint of acute onset persistent right upper quadrant pain that radiates to the epigastric area with nausea and vomiting for the last 8 hours. Patient states that the pain is especially worse with food or palpation. Patient states that the pain radiates to the right sided mid posterior thoracic area and also gets worse with inhalation. Patient denies dizziness, syncope, fever, chills, diarrhea, dysu cecily, urinary frequency and urgency, vaginal bleeding, vaginal discharge, cough, chest pain, shortness of breath, palpitations, nasal and sinus congestion, traumatic injury or heavy lifting, hematemesis or hematochezia. MD Complaint: abdominal pain (Right upper quadrant pain), other (Nausea and vomiting; 16 weeks gestation) -: Sudden, hour(s) (8) Location: RUQ, epigastric Radiation: RUQ, epigastric Migration to: no migration Severity scale (0 -10): 7 Quality: cramping, sharp Consistency: constant Improves With: nothing Worsens With: eating, vomiting Associated Symptoms: denies other symptoms, nausea, vomiting, anorexia. denies: diarrhea, fever, chills, constipation, dysuria, hematemesis, hematochezia, melena, hematuria, syncope - Related Data LMP Date: 10/17/20 Previous Rx's Medication Instructions Recorded Last Taken Type Acetaminophen [Tylenol] 500 mg PO Q6HR PRN #30 tablet 02/12/21 Unknown Rx Famotidine [Pepcid] 20 mg PO BID #60 tablet 02/12/21 Unknown Rx Promethazine [Phenergan] 25 mg PO Q6HR PRN #30 tab 02/12/21 Unknown Rx Allergies Allergy/AdvReac Type Severity Reaction Status Date / Time Penicillins Allergy Itching Verified 02/11/21 20:18 ED Review of Systems ROS: Stated complaint: 16 WKS PREG/BACK/ABD PAIN Other details as noted in HPI Constitutional: denies: chills, fever Eyes: denies: eye pain, eye discharge, vision change ENT: denies: ear pain, throat pain Respiratory: denies: cough, shortness of breath, wheezing Cardiovascular: denies: chest pain, palpitations Endocrine: no symptoms reported Gastrointestinal: abdominal pain (Right upper quadrant pain), nausea, vomiting. denies: diarrhea Genitourinary: denies: urgency, dysuria, discharge Musculoskeletal: denies: back pain, joint swelling, arthralgia Skin: denies: rash, lesions Neurological: denies: headache, weakness, paresthesias Psychiatric: denies: anxiety, depression Hematological/Lymphatic: denies: easy bleeding, easy bruising ED Past Medical Hx - Past Medical History Hx Hypertension: No Hx Congestive Heart Failure: No Hx Diabetes: No Hx Deep Vein Thrombosis: No Hx Renal Disease: No Hx Sickle Cell Disease: No Hx Seizures: No Hx Asthma: No Hx COPD: No Hx HIV: No - Social History Smoking Status: Never Smoker Substance Use Type: None - Medications Home Medications: Home Medications Medication Instructions Recorded Confirmed Last Taken Type Acetaminophen [Tylenol] 500 mg PO Q6HR PRN #30 tablet 02/12/21 Unknown Rx Famotidine [Pepcid] 20 mg PO BID #60 tablet 02/12/21 Unknown Rx Promethazine [Phenergan] 25 mg PO Q6HR PRN #30 tab 02/12/21 Unknown Rx ED Physical Exam - General Limitations: No Limitations General appearance: alert, in no apparent distress - Head Head exam: Present: atraumatic, normocephalic, normal inspection - Eye Eye exam: Present: normal appearance, PERRL, EOMI Pupils: Present: normal accommodation - ENT ENT exam: Present: normal exam, normal orophraynx, mucous membranes moist, TM's normal bilaterally, normal external ear exam - Neck Neck exam: Present: normal inspection, full ROM - Respiratory Respiratory exam: Present: normal lung sounds bilaterally. Absent: respiratory distress, wheezes, rales, rhonchi, stridor, chest wall tenderness, accessory muscle use, decreased breath sounds, prolonged expiratory - Cardiovascular Cardiovascular Exam: Present: regular rate, normal rhythm, normal heart sounds. Absent: systolic murmur, diastolic murmur, rubs, gallop - GI/Abdominal GI/Abdominal exam: Present: soft, tenderness (Palpable right upper quadrant tenderness with positive Dobbins sign), guarding, normal bowel sounds. Absent: rebound, hyperactive bowel sounds, hypoactive bowel sounds, organomegaly - Extremities Exam Extremities exam: Present: normal inspection, full ROM, normal capillary refill - Back Exam Back exam: Present: normal inspection, full ROM. Absent: tenderness, CVA tenderness (R), CVA tenderness (L), muscle spasm, paraspinal tenderness - Neurological Exam Neurological exam: Present: alert, oriented X3, CN II-XII intact, normal gait, reflexes normal - Psychiatric Psychiatric exam: Present: normal affect, normal mood - Skin Skin exam: Present: warm, dry, intact, normal color. Absent: rash ED Course Vital Signs 02/11/21 20:20 Temperature 98.4 F Pulse Rate 77 Respiratory 19 Rate Blood Pressure 212/103 O2 Sat by Pulse 100 Oximetry ED Medical Decision Making - Lab Data Result diagrams: 02/11/21 21:01 02/11/21 20:50 - Radiology Data Radiology results: report reviewed, image reviewed [facility] [address] [id number] Ultrasound Report Signed Patient: AMIRAH LINDSEY MR#: [id number] : 1980 Acct:[id number] Age/Sex: 40 / F ADM Date: 02/11/21 Loc: ED Attending Dr: Ordering Physician: ARABELLA RANDHAWA Date of Service: 02/11/21 Procedure(s): US abdomen limited Accession Number(s): [id number] cc: ARABELLA RANDHAWA ULTRASOUND ABDOMEN, LIMITED (RIGHT UPPER QUADRANT) INDICATION: RUQ Abdominal pain - r/o cholecystitis. COMPARISON: None available. FINDINGS: Pancreas: Visualized portion shows no significant abnormality. Liver: Normal. Gallbladder: Contracted with multiple gallstones with wall echo shadow sign Bile ducts: Mildly dilated Common Bile Duct measures 9 mm. Free fluid: None. Additional Findings: None. IMPRESSION: 1. Cholelithiasis without cholecystitis 2. Mild biliary ductal dilatation Signer Name: Channing Pettit MD Signed: 02/12/2021 1:32 AM Workstation Name: [id number] Transcribed By: TL Dictated By: Channing Pettit MD Electronically Authenticated By: Channing Pettit MD Signed Date/Time: 02/12/21131 DD/ 0 TD/TT: Print Cancel - Medical Decision Making This is a A0 40-year-old female with no past medical history and who is approximately 16 weeks gestation presents to the ED with complaint of acute onset persistent right upper quadrant pain that radiates to the epigastric area with nausea and vomiting for the last 8 hours. Patient states that the pain is especially worse with food or palpation. Patient states that the pain radiates to the right sided mid posterior thoracic area and also gets worse with inhalation. In the ED, patient is alert and oriented x3 and is not in any distress. Patient however appears to be in significant pain. Patient was treated for pain in the ED and lab test results were reviewed and showed acute leukocytosis of 13,600. The rest of the lab test results are nonactionable. Gallbladder ultrasound showed cholelithiasis without cholecystitis and mild biliary ductal dilatation. On reevaluation, patient's pain is well controlled medication. Patient was therefore discharged home on pain medications, antacids and antiemetics and was given a referral to the general surgeon on-call Dr. Herb pennington for follow-up. Patient was advised to contact Dr. Plata's office first in the morning today Friday, February 12, 2021 to schedule a follow-up appointment. Patient was advised return to the ED immediately if symptoms get worse. - Differential Diagnosis Cholelithiasis; cholecystitis; GERD; gastroenteritis; gastritis; UTI Critical care attestation.: If time is entered above; I have spent that time in minutes in the direct care of this critically ill patient, excluding procedure time. ED Disposition Clinical Impression: Acute abdominal pain in right upper quadrant, Cholelithiasis without cholecys titis, Nausea and vomiting in adult patient GERD (gastroesophageal reflux disease) Qualifiers: Esophagitis presence: esophagitis presence not specified Qualified Code(s): K21.9 - Gastro-esophageal reflux disease without esophagitis Disposition: HOME / SELF CARE / HOMELESS Is pt being admited?: No Does the pt Need Aspirin: No Condition: Stable Instructions: Abdominal Pain (ED), Cholelithiasis, [id number], Nausea and Vomiting, Adult, [id number], Abdominal Pain During , [id number], Gastroesophageal Reflux Disease, Adult, [id number] Additional Instructions: Todos los resultados de las pruebas de laboratorio fueron revisados ??y todos no son factibles, excepto la leucocitosis aguda de 13.600. Los resultados de la ecografa de la vescula biliar mostraron colelitiasis sin colecistitis y leve dilatacin ductal biliar. Por lo tanto, es probable que zhang dolor en el cuadrante superior derecho se deba a los clculos biliares identificados en la ecografa. Sin embargo, no hay signos de infeccin en la pared de la vescula biliar. Por lo tanto, tome los analgsicos segn sea necesario, enio un seguimiento con el cirujano general villavicencio, el Dr. Plata, para mian evaluacin adicional en los prximos 3 a 5 yoon. Comunquese con el consultorio del Dr. Plata a primera hora de la maana de hoy 11 2020 para programar mian desirae de se guimiento. Regrese al servicio de urgencias de inmediato si los sntomas empeoran. Prescriptions: Acetaminophen [Tylenol] 500 mg PO Q6HR PRN #30 tablet PRN Reason: severe pain Famotidine [Pepcid] 20 mg PO BID #60 tablet Promethazine [Phenergan] 25 mg PO Q6HR PRN #30 tab PRN Reason: Nausea Referrals: ADRIAN PLATA DO [Staff Physician] - 2-3 Days Time of Disposition: 01:50 Print Language: KHMER
[2021-02-11 21:34] LABS: Alanine Aminotransferase 18 units/L (7-56); Albumin 3.9 g/dL (3.9-5); Blood Urea Nitrogen 7 mg/dL (7-17); Hemolysis Index 0
[2021-02-11 21:38] LABS: BUN/Creatinine Ratio 14
[2021-02-11 21:52] LABS: Basophils # (Auto) 0.3 K/mm3 (0.0-0.1); Basophils % (Auto) 2.3 % (0.0-1.8); Eosinophils # (Auto) 0.5 K/mm3 (0.0-0.4); Eosinophils % (Auto) 3.9 % (0.0-4.3); Hematocrit 39.6 % (30.3-42.9); Hemoglobin 13.1 gm/dl (10.1-14.3); Lymphocytes # (Auto) 2.1 K/mm3 (1.2-5.4); Lymphocytes % (Auto) 15.5 % (13.4-35.0); Mean Corpuscular HGB Conc 33 % (30-34); Mean Corpuscular Volume 82 fl (79-97); Monocytes # (Auto) 0.8 K/mm3 (0.0-0.8); Monocytes % (Auto) 5.6 % (0.0-7.3); Platelet Count 185 K/mm3 (140-440); Red Blood Count 4.83 M/mm3 (3.65-5.03); Red Cell Distribution Width 14.1 % (13.2-15.2)
[2021-02-11 22:39] LABS: Bacteria,Urine 1+ /HPF (Negative); Bilirubin,Urine NEG (Negative); Blood,Urine SM (Negative); Color,Urine Straw (Yellow); Mucus,Urine FEW /HPF; Protein,Urine <15 mg/dL mg/dL (Negative); Urobilinogen,Urine < 2.0 mg/dL (<2.0)
--- NOTE | 2021-02-12 01:37 | Ultrasound Report ---
ULTRASOUND ABDOMEN, LIMITED (RIGHT UPPER QUADRANT) INDICATION: RUQ Abdominal pain - r/o cholecystitis. COMPARISON: None available. FINDINGS: Pancreas: Visualized portion shows no significant abnormality. Liver: Normal. Gallbladder: Contracted with multiple gallstones with wall echo shadow sign Bile ducts: Mildly dilated Common Bile Duct measures 9 mm. Free fluid: None. Additional Findings: None. IMPRESSION: 1. Cholelithiasis without cholecystitis 2. Mild biliary ductal dilatation Signer Name: Channing Pettit MD Signed: 02/12/2021 1:32 AM Workstation Name: [id number]
[2021-02-12 03:11] VITALS: BP 207/112
== END 2021-02-12 03:11 | disposition home or self-care (01) ==
LOC: ED 20:07
DX: O26.892 Other specified pregnancy related conditions, second trimester (principal); O21.8 Other vomiting complicating pregnancy; R10.11 Right upper quadrant pain; K80.20 Calculus of gallbladder without cholecystitis without obstruction; K21.9 Gastro-esophageal reflux disease without esophagitis; Z3A.16 16 weeks gestation of pregnancy; Z88.0 Allergy status to penicillin
CPT/HCPCS: 36415; 76705; 80053; 81001; 84703; 85025; 96374; 96375; 99284; J2270; J2405

== ENCOUNTER 2021-02-25 | Emergency (ER) | payer SELFPAY ==
[2021-02-25] MEDS ORDERED: ONDANSETRON 4 MG/2 ML INJ IV ONE (01:43)
[2021-02-25] MEDS ORDERED: ACETAMINOPHEN W/CODEINE 300-30 MG TAB PO ONE (01:43)
--- NOTE | 2021-02-25 01:49 | Emergency Department Report ---
ED Abdominal Pain HPI - General Chief Complaint: High BP Stated Complaint: ABDOMINAL PAIN Time Seen by Provider: 02/25/21 01:07 Source: patient Mode of arrival: Ambulatory Limitations: Language Barrier (Holistic Health Practitioner used) - History of Present Illness Initial Comments: 40-year-old female currently 18 weeks with a past medical history of right upper quadrant pain x8 days with recent diagnosis of cholelithiasis presents to the hospital for persistent right upper quadrant pain. Pain is severe, constant, worse with palpation. She is taken Tylenol without relief. She has been seen here on February 11 and had a ultrasound showing gallstones with mild bile duct dilatation. She was seen again here on the and had a repeat ultrasound showing resolution of bile duct dilatation but persistent stones. During both visits patient has normal lipase, LFTs, and mild leukocytosis. Patient does not endorse fever, nausea, or vomiting. She lidia cisneros was also seen at [facility] on February 21. She has an unfilled prescription for promethazine and Tylenol with codeine in her purse. Patient apparently did not realize this was a different medication than OTC Tylenol that she has been taking therefore she never filled the med. Patient's blood pressure has very been elevated during visits. History of preeclampsia but no history of hypertension. Patient is taking the labetalol 200 mg as prescribed but suspect medication is not working secondary to persistent pain - Related Data Previous Rx's Medication Instructions Recorded Last Taken Type Acetaminophen [Tylenol] 500 mg PO Q6HR PRN #30 tablet 02/12/21 Unknown Rx Famotidine [Pepcid] 20 mg PO BID #60 tablet 02/12/21 Unknown Rx Promethazine [Phenergan] 25 mg PO Q6HR PRN #30 tab 02/12/21 Unknown Rx labetaloL [Labetalol 200mg TAB] 200 mg PO BID #60 tablet 02/20/21 Unknown Rx dexAMETHasone [Dexamethasone] 10 mg PO DAILY 10 Days tablet 02/25/21 Unknown Rx Allergies Allergy/AdvReac Type Severity Reaction Status Date / Time Penicillins Allergy Itching Verified 02/11/21 20:18 ED Review of Systems ROS: Stated complaint: ABDOMINAL PAIN Other details as noted in HPI Comment: All other systems reviewed and negative ED Past Medical Hx - Past Medical History Hx Hypertension: Yes (preeclampsia) Hx Congestive Heart Failure: No Hx Diabetes: No Hx Deep Vein Thrombosis: No Hx Renal Disease: No Hx Sickle Cell Disease: No Hx Seizures: No Hx Asthma: No Hx COPD: No Hx HIV: No - Surgical History Past Surgical History?: No - Social History Smoking Status: Never Smoker Substance Use Type: None - Medications Home Medications: Home Medications Medication Instructions Recorded Confirmed Last Taken Type Acetaminophen [Tylenol] 500 mg PO Q6HR PRN #30 tablet 02/12/21 Unknown Rx Famotidine [Pepcid] 20 mg PO BID #60 tablet 02/12/21 Unknown Rx Promethazine [Phenergan] 25 mg PO Q6HR PRN #30 tab 02/12/21 Unknown Rx labetaloL [Labetalol 200mg TAB] 200 mg PO BID #60 tablet 02/20/21 Unknown Rx dexAMETHasone [Dexamethasone] 10 mg PO DAILY 10 Days tablet 02/25/21 Unknown Rx ED Physical Exam - General Limitations: Language Barrier - Other Other exam information: General: No acute distress Head: Atraumatic Eyes: normal appearance ENT: Moist mucous membranes Neck: Normal appearance, no midline tenderness Chest: Clear to auscultation bilaterally CV: Regular rate and rhythm Abdomen: Soft, normal bowel sounds, nontender, nondistended, no rebound or guar ding Back: Normal inspection Extremity: Normal inspection, full range of motion Neuro: Alert O x 3, no facial asymmetry, speech clear, no gross motor sensory deficit Psych: Appropriate behavior Skin: No rash ED Course Vital Signs 02/25/21 02/25/21 02/25/21 00:43 01:23 01:31 Temperature 98.9 F Pulse Rate 87 93 H 89 Respiratory 20 30 H 24 Rate Blood Pressure 189/102 Blood Pressure 210/109 [Right] O2 Sat by Pulse 98 100 100 Oximetry 02/25/21 02/25/21 02/25/21 01:45 02:00 02:01 Temperature Pulse Rate 80 81 85 Respiratory 19 22 16 Rate Blood Pressure 199/110 203/104 Blood Pressure 203/104 [Right] O2 Sat by Pulse 98 100 100 Oximetry 02/25/21 02/25/21 02/25/21 02:15 02:31 02:45 Temperature Pulse Rate 89 88 90 Respiratory 26 H 22 27 H Rate Blood Pressure 199/105 177/96 166/96 Blood Pressure [Right] O2 Sat by Pulse 99 98 98 Oximetry 02/25/21 02/25/21 02/25/21 03:01 03:15 03:31 Temperature Pulse Rate 88 89 87 Respiratory 24 26 H 22 Rate Blood Pressure 160/90 160/90 152/83 Blood Pressure [Right] O2 Sat by Pulse 97 96 96 Oximetry 02/25/21 02/25/21 02/25/21 03:45 04:01 04:13 Temperature 98.7 F Pulse Rate 90 99 H 89 Respiratory 23 22 22 Rate Blood Pressure 158/89 146/87 Blood Pressure 146/87 [Right] O2 Sat by Pulse 97 97 97 Oximetry 02/25/21 04:15 Temperature Pulse Rate 90 Respiratory 14 Rate Blood Pressure 156/87 Blood Pressure [Right] O2 Sat by Pulse 98 Oximetry - Reevaluation(s) Reevaluation #1: 02/25/21 04:22 Patient's pain has completely resolved. Blood pressure also greatly improved. Labs show a platelet count of 57 which is significant change compared to previous blood draw. I requested stat repeat CBC to verify accuracy - Consultations Consultation #1: 02/25/21 05:[address] Ji on-call NEUROPHYSIOLOGICAL TECHNICIAN. Agrees that patient does not appear to be in help syndrome at this time. Recommends dexamethasone 10 mg x 10 days and follow-up in the office for reevaluation. Plans to refer patient to maternal- medicine specialist and line service person ED Medical Decision Making - Lab Data Result diagrams: 02/25/21 04:32 02/25/21 01:46 Lab Results 02/25/21 02/25/21 02/25/21 Range/Units 01:46 01:46 02:00 WBC 12.2 H (4.5-11.0) K/mm3 RBC 4.00 (3.65-5.03) M/mm3 Hgb 10.7 (10.1-14.3) gm/dl Hct 32.8 (30.3-42.9) % MCV 82 (79-97) fl MCH 27 L (28-32) pg MCHC 33 (30-34) % RDW 14.3 (13.2-15.2) % Plt Count 52 L (140-440) K/mm3 Lymph % (Auto) 20.8 (13.4-35.0) % [place] % (Auto) 6.2 (0.0-7.3) % Eos % (Auto) 4.0 (0.0-4.3) % Baso % (Auto) 0.3 (0.0-1.8) % Lymph # (Auto) 2.5 (1.2-5.4) K/mm3 [place] # (Auto) 0.8 (0.0-0.8) K/mm3 Eos # (Auto) 0.5 H (0.0-0.4) K/mm3 Baso # (Auto) 0.0 (0.0-0.1) K/mm3 Seg Neutrophils % 68.7 (40.0-70.0) % Seg Neutrophils # 8.4 H (1.8-7.7) K/mm3 Sodium 136 L (137-145) mmol/L Potassium 4.1 (3.6-5.0) mmol/L Chloride 103.2 (98-107) mmol/L Carbon Dioxide 19 L (22-30) mmol/L Anion Gap 18 mmol/L BUN 10 (7-17) mg/dL Creatinine 0.4 L (0.6-1.2) mg/dL Estimated GFR > 60 ml/min BUN/Creatinine Ratio 25 % Glucose 99 (65-100) mg/dL Calcium 9.0 (8.4-10.2) mg/dL Total Bilirubin 0.50 (0.1-1.2) mg/dL AST 39 (5-40) units/L ALT 38 (7-56) units/L Alkaline Phosphatase 79 (35-129) units/L Total Protein 6.8 (6.3-8.2) g/dL Albumin 3.5 L (3.9-5) g/dL Albumin/Globulin Ratio 1.1 % Lipase 28 (13-60) units/L Urine Color Yellow (Yellow) Urine Turbidity Clear (Clear) Urine pH 7.0 (5.0-7.0) Ur Specific [place] 1.011 (1.003-1.030) Urine Protein 30 mg/dl (Negative) mg/dL Urine Glucose (UA) Neg (Negative) mg/dL Urine Ketones Neg (Negative) mg/dL Urine Blood Neg (Negative) Urine Nitrite Neg (Negative) Urine Bilirubin Neg (Negative) Urine Urobilinogen 2.0 (<2.0) mg/dL Ur Leukocyte Esterase Neg (Negative) Urine WBC (Auto) < 1.0 (0.0-6.0) /HPF Urine RBC (Auto) < 1.0 (0.0-6.0) /HPF U Epithel Cells (Auto) 3.0 (0-13.0) /HPF Urine Bacteria (Auto) 1+ (Negative) /HPF 02/25/21 Range/Units 04:32 WBC 11.4 H (4.5-11.0) K/mm3 RBC 3.84 (3.65-5.03) M/mm3 Hgb 10.3 (10.1-14.3) gm/dl Hct 31.6 (30.3-42.9) % MCV 82 (79-97) fl MCH 27 L (28-32) pg MCHC 33 (30-34) % RDW 14.2 (13.2-15.2) % Plt Count 51 L (140-440) K/mm3 Lymph % (Auto) (13.4-35.0) % [place] % (Auto) (0.0-7.3) % Eos % (Auto) (0.0-4.3) % Baso % (Auto) (0.0-1.8) % Lymph # (Auto) (1.2-5.4) K/mm3 [place] # (Auto) (0.0-0.8) K/mm3 Eos # (Auto) (0.0-0.4) K/mm3 Baso # (Auto) (0.0-0.1) K/mm3 Seg Neutrophils % (40.0-70.0) % Seg Neutrophils # (1.8-7.7) K/mm3 Sodium (137-145) mmol/L Potassium (3.6-5.0) mmol/L Chloride (98-107) mmol/L Carbon Dioxide (22-30) mmol/L Anion Gap mmol/L BUN (7-17) mg/dL Creatinine (0.6-1.2) mg/dL Estimated GFR ml/min BUN/Creatinine Ratio % Glucose (65-100) mg/dL Calcium (8.4-10.2) mg/dL Total Bilirubin (0.1-1.2) mg/dL AST (5-40) units/L ALT (7-56) units/L Alkaline Phosphatase (35-129) units/L Total Protein (6.3-8.2) g/dL Albumin (3.9-5) g/dL Albumin/Globulin Ratio % Lipase (13-60) units/L Urine Color (Yellow) Urine Turbidity (Clear) Urine pH (5.0-7.0) Ur Specific [place] (1.003-1.030) Urine Protein (Negative) mg/dL Urine Glucose (UA) (Negative) mg/dL Urine Ketones (Negative) mg/dL Urine Blood (Negative) Urine Nitrite (Negative) Urine Bilirubin (Negative) Urine Urobilinogen (<2.0) mg/dL Ur Leukocyte Esterase (Negative) Urine WBC (Auto) (0.0-6.0) /HPF Urine RBC (Auto) (0.0-6.0) /HPF U Epithel Cells (Auto) (0-13.0) /HPF Urine Bacteria (Auto) (Negative) /HPF - Medical Decision Making 40-year-old female with persistent right upper quadrant pain due to cholelithiasis now with new thrombocytopenia. No signs of help syndrome, infection/cholecystitis, or elevated LFTs/lipase. No reports of bleeding. Case discussed with on-call NEUROPHYSIOLOGICAL TECHNICIAN who recommends dexamethasone 2 mg x 10 days and follow-up in the office with her. Patient's blood pressure elevated upon arrival and improved with pain reduction. Patient received 2 tablets of Tylenol with codeine in addition to IV Zofran and pain level went down to 0/10. She was instructed to fill her Tylenol with codeine prescription for continued pain relief after discharge Critical Care Time: No Critical care attestation.: If time is entered above; I have spent that time in minutes in the direct care of this critically ill patient, excluding procedure time. ED Disposition Clinical Impression: Cholelithiasis, Biliary colic, induced hypertension, Thrombocytopenia Disposition: 01 HOME / SELF CARE / HOMELESS Is pt being admited?: No Does the pt Need Aspirin: No Condition: Stable Instructions: Hypertension (ED), Cholelithiasis, Hypertension During , [id number] Additional Instructions: Fill the medication prescribed for Tylenol with codeine. Your platelet count is low today. Platelets are responsible for allowing your blood to clot when you receive a cut. I have discussed this with the NEUROPHYSIOLOGICAL TECHNICIAN doctor manager transmission Dr. Lincoln melo. She request that she follow-up with her in the office. We have started you on 10 days of steroid. You will need outpatient follow-up with the maternal- medicine specialist as well as a line service person which will be arranged by Dr. Ji. Llene el medicamento recetado para Tylenol con codena. Diego recuento de plaquetas es bajo hoy. Las plaquetas son responsables de permitir que diego emily coagule cuando recibe un blanca. He discutido esto con el mdico obstetra / gineclogo de twan, el Dr. Ji. Arti le pide que enio un seguimiento con arti en la oficina. Hemos comenzado con 10 yoon de esteroides. Necesitar un seguimiento ambulatorio con el especialista en medicina materno-, as navin con un hematlogo que ser organizado por el Dr. Ji. Prescriptions: dexAMETHasone [Dexamethasone] 10 mg PO DAILY 10 Days tablet Referrals: MITALI JI MD [Staff Physician] - 3-5 Days Time of Disposition: 05:31 Print Language: SERBIAN
[2021-02-25 01:57] LABS: Basophils % (Auto) 0.3 % (0.0-1.8); Eosinophils # (Auto) 0.5 K/mm3 (0.0-0.4); Hematocrit 32.8 % (30.3-42.9); Hemoglobin 10.7 gm/dl (10.1-14.3); Lymphocytes # (Auto) 2.5 K/mm3 (1.2-5.4); Lymphocytes % (Auto) 20.8 % (13.4-35.0); Mean Corpuscular HGB Conc 33 % (30-34); Mean Corpuscular Volume 82 fl (79-97); Monocytes # (Auto) 0.8 K/mm3 (0.0-0.8); Monocytes % (Auto) 6.2 % (0.0-7.3); Red Cell Distribution Width 14.3 % (13.2-15.2)
[2021-02-25 02:07] LABS: Platelet Count 52 K/mm3 (140-440)
[2021-02-25 02:19] LABS: Alanine Aminotransferase 38 units/L (7-56); Albumin 3.5 g/dL (3.9-5); Blood Urea Nitrogen 10 mg/dL (7-17); Hemolysis Index 3
[2021-02-25 02:21] LABS: BUN/Creatinine Ratio 25
[2021-02-25 02:53] LABS: Bacteria,Urine 1+ /HPF (Negative); Bilirubin,Urine NEG (Negative); Blood,Urine NEG (Negative); Color,Urine Yellow (Yellow); RBC,Urine < 1.0 /HPF (0.0-6.0); WBC,Urine < 1.0 /HPF (0.0-6.0)
[2021-02-25 04:56] LABS: Hematocrit 31.6 % (30.3-42.9); Hemoglobin 10.3 gm/dl (10.1-14.3); Mean Corpuscular HGB Conc 33 % (30-34); Mean Corpuscular Volume 82 fl (79-97); Red Blood Count 3.84 M/mm3 (3.65-5.03); Red Cell Distribution Width 14.2 % (13.2-15.2)
[2021-02-25 05:08] LABS: Platelet Count 51 K/mm3 (140-440)
[2021-02-25] MEDS ORDERED: dexAMETHasone 20 MG/5 ML VIAL IV ONE (05:22)
[2021-02-25 06:05] VITALS: BP 159/89
== END 2021-02-25 06:06 | disposition home or self-care (01) ==
LOC: ED
DX: K80.20 Calculus of gallbladder without cholecystitis without obstruction (principal); K80.50 Calculus of bile duct without cholangitis or cholecystitis without obstruction; D69.6 Thrombocytopenia, unspecified; I10 Essential (primary) hypertension; Z88.0 Allergy status to penicillin; Z79.899 Other long term (current) drug therapy
CPT/HCPCS: 36415; 80053; 81001; 83690; 85025; 85027; 96374; 99283; J2405

== ENCOUNTER 2021-02-28 21:29 | Inpatient (IN) | payer OTHER ==
--- NOTE | 2021-03-01 01:29 | History and Physical Report ---
History of Present Illness Date of examination: 03/01/21 Chief complaint: here for induction of current IUFD at 17.1wks History of present illness: at 17.1wks by LMP c/w 16wk u/s done 02/27/21. Pt seen at clinic and noted to have no FHR on ultrasound and sent here for delivery. pt states she has known hypertension and has taken her meds as prescribed. Denies pelvic pain or cramping. Denies headache. records show pt had SAB x3 at 4-5wks x3, last one in 2013. [place] nurse later questioned pt after BP noted to be high on machine, and pt now states she has preeclampsia with every preg. Past History Past Medical History: hypertension (and preeclampsia with all previous preg) Past Surgical History: no surgical history Social history: no significant social history - Obstetrical History Expected Date of Delivery: 08/06/21 Actual Gestation: 17 Week(s) 3 Day(s) : 8 Hx # Term Pregnancies: 3 Number of Pregnancies: 1 Spontaneous Abortions: 3 Number of Living Children: 4 Medications and Allergies Allergies Allergy/AdvReac Type Severity Reaction Status Date / Time Penicillins Allergy Itching Verified 02/11/21 20:18 Home Medications Medication Instructions Recorded Confirmed Last Taken Type Acetaminophen [Tylenol] 500 mg PO Q6HR PRN #30 tablet 02/12/21 Unknown Rx Famotidine [Pepcid] 20 mg PO BID #60 tablet 02/12/21 Unknown Rx Promethazine [Phenergan] 25 mg PO Q6HR PRN #30 tab 02/12/21 Unknown Rx labetaloL [Labetalol 200mg TAB] 200 mg PO BID #60 tablet 02/20/21 Unknown Rx dexAMETHasone [Dexamethasone] 10 mg PO DAILY 10 Days tablet 02/25/21 Unknown Rx Review of Systems All systems: negative (negative) - Physical Exam Breasts: Positive: deferred Cardiovascular: Regular rate Lungs: Positive: Normal air movement Genitourinary (Female): Positive: normal external genitalia Vulva: both: normal Vagina: Positive: normal moisture Uterus: Positive: enlarged (at 16-18wks) Extremities: Positive: normal - Obstetrical Uterine Contraction Monitor Mode: External Cervical Dilatation: 0 Cervical Effacement Percentage: 0 station: -4 Results Result Diagrams: 03/01/21 01:49 03/01/21 01:49 All other labs normal. Assessment and Plan IUFD at 17.3wks by LMP c/w U/s on 02/27/21 that confirmed no FHR; Uncontrolled BP with h/o preeclampsia with every preg 1. Admit for cytotec induction of labor which may take 1-3days 2. Plan of care discussed 3. May have IV pain prn 4. Continue labetalol 200mg bid 5. Check PIH labs All question encouraged and answered
[2021-03-01] MEDS ORDERED: TERBUTALINE 1 MG/1 ML INJ SUB-Q PRN ×2 (01:35→11:29)
[2021-03-01] MEDS ORDERED: OXYTOCIN 10 UNIT/1 ML INJ IM PRN (01:35)
[2021-03-01] MEDS ORDERED: ACETAMINOPHEN 325 MG TAB PO PRN ×2 (01:35→11:29)
[2021-03-01] MEDS ORDERED: NalbUPHINE 10 MG/1 ML INJ IV PRN (01:35)
[2021-03-01] MEDS ORDERED: CARBOPROST TROMETHAMINE 250 MCG/1 ML INJ IM PRN (01:35)
[2021-03-01] MEDS ORDERED: fentaNYL 100 MCG/2 ML INJ IV PRN ×2 (01:35→11:29)
[2021-03-01] MEDS ORDERED: LOPERAMIDE 2 MG CAP PO PRN (01:35)
[2021-03-01] MEDS ORDERED: ePHEDrine SULFATE 50 MG/1 ML INJ IV PRN ×2 (01:35→11:29)
[2021-03-01] MEDS ORDERED: MINERAL OIL 30 ML ORAL LIQD PO PRN ×2 (01:35→11:29)
[2021-03-01] MEDS ORDERED: METHYLERGONOVINE MALEATE 0.2 MG/ML VIAL IM PRN (01:35)
[2021-03-01] MEDS ORDERED: LIDOCAINE (2%) 20 MG/1 ML VIAL 20 ML MDV INFILTRATI ONE ×2 (01:35→11:45)
[2021-03-01] MEDS ORDERED: PROMETHAZINE 25 MG RECT SUPP PR PRN ×2 (01:35→13:00)
[2021-03-01] MEDS ORDERED: miSOPROStol 200 MCG TAB PR PRN (01:35)
[2021-03-01] MEDS ORDERED: miSOPROStol 200 MCG TAB PO SCH (02:00)
[2021-03-01] MEDS ORDERED: OXYTOCIN DRIP 30 UNITS/500 ML BAG IV SCH ×2 (02:00)
[2021-03-01] MEDS: LACTATED RINGERS 1,000 ML IV SCH ×2 (02:17→21:09)
[2021-03-01 02:22] LABS: Hematocrit 34.7 % (30.3-42.9); Hemoglobin 11.6 gm/dl (10.1-14.3); Mean Corpuscular HGB Conc 34 % (30-34); Mean Corpuscular Volume 81 fl (79-97); Platelet Count 202 K/mm3 (140-440); Red Blood Count 4.29 M/mm3 (3.65-5.03); Red Cell Distribution Width 14.7 % (13.2-15.2)
[2021-03-01 02:33] LABS: Alanine Aminotransferase 24 units/L (7-56); Albumin 3.8 g/dL (3.9-5); Blood Urea Nitrogen 14 mg/dL (7-17); Calcium 8.7 mg/dL (8.4-10.2); Hemolysis Index 19; Uric Acid 6.7 mg/dL (3.5-7.6)
[2021-03-01 02:46] LABS: BUN/Creatinine Ratio 35
[2021-03-01] MEDS ORDERED: MAGNESIUM SULFATE 4 GM/100 ML BAG IV ONE (02:54)
[2021-03-01] MEDS ORDERED: hydrALAZINE 20 MG/1 ML INJ ONE (02:57)
[2021-03-01] MEDS ORDERED: MAGNESIUM SULFATE 40GM/1000ML 40 GM/1,000 ML BAG IV ONE (02:58)
[2021-03-01] MEDS ORDERED: LACTATED RINGERS 1,000 ML IV SCH (03:00)
[2021-03-01] MEDS: hydrALAZINE 20 MG/1 ML INJ IV PRN ×4 (03:05→21:03)
[2021-03-01] MEDS: MAGNESIUM SULFATE 40GM/1000ML 40 GM/1,000 ML BAG IV SCH ×2 (03:34→21:09)
[2021-03-01 06:34] LABS: Hematocrit 34.8 % (30.3-42.9); Hemoglobin 11.2 gm/dl (10.1-14.3); Mean Corpuscular HGB Conc 32 % (30-34); Mean Corpuscular Volume 84 fl (79-97); Platelet Count 206 K/mm3 (140-440); Red Blood Count 4.16 M/mm3 (3.65-5.03); Red Cell Distribution Width 14.6 % (13.2-15.2)
[2021-03-01 06:44] LABS: INR 0.87 (0.87-1.13); Partial Thromboplastin Time 23.3 Sec. (24.2-36.6)
[2021-03-01 06:51] LABS: Blood Urea Nitrogen 12 mg/dL (7-17)
[2021-03-01 06:52] LABS: Alanine Aminotransferase 24 units/L (7-56); Albumin 3.4 g/dL (3.9-5); Hemolysis Index 3
[2021-03-01 06:53] LABS: BUN/Creatinine Ratio 30; Bilirubin,Direct < 0.2 mg/dL (0-0.2)
[2021-03-01] MEDS ORDERED: BUTORPHANOL 2 MG/1 ML INJ IV PRN ×2 (11:29)
[2021-03-01] MEDS ORDERED: miSOPROStol 200 MCG TAB PR ONE (12:00)
[2021-03-01] MEDS ORDERED: LANOLIN/ZINC/DIMETHICONE (LANSINOH) 7 GM TP PRN (12:00)
[2021-03-01] MEDS ORDERED: ONDANSETRON 4 MG/2 ML INJ IV PRN (12:00)
[2021-03-01] MEDS ORDERED: diphenhydrAMINE 25 MG CAP PO PRN (12:00)
[2021-03-01] MEDS ORDERED: IBUPROFEN 600 MG TAB PO SCH (12:00)
--- NOTE | 2021-03-01 12:02 | Procedure Note ---
OB Delivery Note - Delivery Date of Delivery: 03/01/21 Surgeon: TIERRA FRAZIER Estimated blood loss: 100cc - Vaginal Delivery presentation: breech Intrapartum events: other(please specify) (IUFD) Delivery induction: misoprostol Delivery augmentation: rupture of membranes Delivery monitor: none Route of delivery: Episiotomy: none Delivery laceration: none Anesthesia: none Delivery comments: Delivery of IUFD male infant in breech position. Cord was clamped x 2 and cut. was placed in a basin. 0/0. FF below U with fundal massage and IV Pitocin. No lacerations were noted. Parents were encouraged to view fetus but refused. EBL 100cc. Emotional support was provided. Awaiting Placenta expulsion. Mom was left in stable condition with nurse. Will continue monitoring. - A at 1 minute: 0 at 5 minutes: 0 Gender: Male (IUFD)
--- NOTE | 2021-03-01 12:16 | Event Note ---
Date: 03/01/21 FF below U. Pt now with retained placenta. Cytotec 800mcg [place] was given. Dr Hughes agrees with plan.
[2021-03-01 12:52] LABS: Hematocrit 36.4 % (30.3-42.9); Hemoglobin 11.7 gm/dl (10.1-14.3)
[2021-03-01] MEDS ORDERED: PROMETHAZINE 25 MG TAB PO PRN (13:00)
[2021-03-01] MEDS ORDERED: WITCH HAZEL/ GLYCERIN PAD TP PRN (13:00)
[2021-03-01] MEDS ORDERED: oxyCODONE /ACETAMINOPHEN 5-325MG TAB PO PRN (13:00)
--- NOTE | 2021-03-01 14:58 | Event Note ---
Date: 03/01/21 FF below U. Mala wnl. Placenta remains in attached. Dr Hughes was consulted. Repeat dose of Cytotec 800mcg [place] was confirmed with pharmacy and given per Md's orders. Will continue monitoring.
[2021-03-01] MEDS ORDERED: AMPICILLIN/NS 2 GM/100 ML 2 GM/100 ML BAG IV ONE (16:50)
[2021-03-01] MEDS ORDERED: diphenhydrAMINE 50 MG CAP PO ONE (17:13)
[2021-03-01] MEDS: CLINDAMYCIN 600 MG/50 mL 600 MG/50 ML BAG IV SCH (17:34)
--- NOTE | 2021-03-01 17:38 | Anesthesia Day of Surgery ---
Anesthesia Day of Surgery - Day of Surgery Patient Examined: Yes Patient H&P Reviewed: Yes Patient is NPO: Yes
--- NOTE | 2021-03-01 17:38 | Anesthesia Consultation ---
Anesthesia Consult and Med Hx Date of service: 03/01/21 - Airway Anesthetic Teeth Evaluation: Good ROM Head & Neck: Adequate Mental/Hyoid Distance: Adequate Mallampati Class: Class II Intubation Access Assessment: Good - Pulmonary Exam CTA: Yes - Cardiac Exam Cardiac Exam: RRR - Pre-Operative Health Status ASA Pre-Surgery Classification: ASA2 Proposed Anesthetic Plan: MAC - Pulmonary Hx Asthma: No COPD: No Hx Pneumonia: No - Cardiovascular System Hx Hypertension: Yes (preeclampsia) - Central Nervous System Hx Seizures: No Hx Psychiatric Problems: No - Endocrine Hx Renal Disease: No Hx End Stage Renal Disease: No Hx Hypothyroidism: No Hx Hyperthyroidism: No - Hematic Hx Anemia: No Hx Sickle Cell Disease: No - Other Systems Hx Alcohol Use: No
[2021-03-01] MEDS ORDERED: MIDAZOLAM 5 MG/5 ML INJ MDV IV ONE (18:16)
[2021-03-01] MEDS ORDERED: fentaNYL 100 MCG/2 ML INJ ONE (18:19)
[2021-03-01] MEDS ORDERED: propofoL 200 MG/20 ML VIAL IV ONE (18:20)
[2021-03-01] MEDS ORDERED: SODIUM CHLORIDE 0.9% 1000 ML 1,000 ML ONE (18:47)
[2021-03-01] MEDS ORDERED: ONDANSETRON 4 MG/2 ML INJ ONE (18:47)
[2021-03-01] MEDS ORDERED: KETOROLAC 30 MG/1 ML INJ ONE (18:47)
[2021-03-01] MEDS ORDERED: SODIUM CHLORIDE 0.9% IRR 1,500 ML BOTTLE IR ONE (18:50)
--- NOTE | 2021-03-01 18:56 | Procedure Note ---
Date of procedure: 03/01/21 Pre-op diagnosis: retained products of conception Post-op diagnosis: same Procedure: Preoperative diagnosis: 1. retained products of conception Postoperative diagnosis: 1. Same Operation performed: 1. Examined under anesthesia 2. Dilation & curettage Surgeon: Sun Wiggins Anesthesia: General EBL: 150cc UOP: 50cc IVF 500cc Pathology specimens: Uterine contents Complications: none Disposition and condition: To the PACU in stable condition then discharged home Findings: 1. 10 week size mobile uterus 2. Moderate amount of products of conception Statement of medical necessity: 40 yo status post spontaneous vaginal delivery of 17 weeks IUFD presenting for dilation curettage for retained products of conception, primarily the placenta. She desired surgical management. The procedure risk benefits, indications and alternatives reviewed patient. Description of operation: After informed consent, the patient was taken to the OR and placed in Jose stirrups after general anesthesia was administered. An exam under anesthesia was performed with the findings noted above. The vagina was prepped and draped in the usual sterile fashion. Did not catheterization of the bladder was performed. A duckbill speculum was placed to visualize the cervix. A single-tooth tenaculum was placed onto the anterior cervical lip. Serial dilation of the cervix with Rios dilators was performed. The uterus was gently sounded to 10 centimeters. Suction was calibrated to 60 mmHg, and a 8 millimeters curette was gently advanced into the uterine cavity fundus. Suction was applied, and the curette was rotated to evacuate the uterus of products of c onception. A sharp curettage was performed until a gritty texture was noted. Suction curettage was repeated to clear the remaining products of conception. Minimal bleeding was noted. The tenaculum was removed from the cervix with good hemostasis noted. The speculum was removed. Patient tolerated the procedure well and was taken to recovery room in good condition. Anesthesia: none (moderate sedation) Surgeon: SUN WIGGINS JR Estimated blood loss: 50-100ml IV fluids: 500 Urine output: 150 Pathology: list (products of conception) Specimen disposition: to lab Condition: stable Disposition: floor
--- NOTE | 2021-03-01 20:07 | Ultrasound Report ---
US guide intraoperative INDICATION / CLINICAL INFORMATION: need US for US guided D C. COMPARISON: None available. FINDINGS: Transverse and sagittal images of the uterus demonstrate no large heterogeneous structure within the endometrium to suggest retained products of conception status post D and C. Signer Name: Geo Camejo DO Signed: 03/01/2021 8:03 PM Workstation Name: [id number]
[2021-03-01] MEDS ORDERED: MAGNESIUM HYDROXIDE (MOM) ORAL LIQD UDC PO PRN (22:00)
[2021-03-02 01:09] LABS: Hematocrit 31.2 % (30.3-42.9); Hemoglobin 10.2 gm/dl (10.1-14.3)
[2021-03-02] MEDS: CLINDAMYCIN 600 MG/50 mL 600 MG/50 ML BAG IV SCH (02:18)
--- NOTE | 2021-03-02 06:19 | Post Anesthesia Evaluation ---
- Post Anesthesia Evaluation Patient Participated: Yes Airway Patent: Yes Stable Respiratory Function: Yes Nausea/Vomiting: Yes Temp > 96.8F: No Pain Manageable: Yes Adequeate Hydration: Yes Anesthesia Complications: No Block Receding Appropriately: Not Applicable Patient on Ventilator: No
--- NOTE | 2021-03-02 08:11 | Progress Note ---
Subjective - Subjective Date of service: 03/02/21 Interval history: SP OF IUFD SP D&C FOR RPOC: HB stable ~10 with no active VB. Pre-eclampsia: stable on MGSO4 and labetalol PO(BP's <140/90). Plan for today: DC MGSO4 at 12:00pm, transfer to for 24 hours then DC home. Maternal status stable. Laura Chan MD Patient reports: appetite normal, voiding normally, ambulating normally Objective - Vital Signs Latest vital signs: Vital Signs Temp Pulse Resp BP BP Pulse Ox 03/02/21 08:07 90 96 03/02/21 08:04 88 94 03/02/21 08:02 85 96 03/02/21 07:57 89 95 03/02/21 07:54 94 H 94 03/02/21 07:52 104 H 95 03/02/21 07:48 92 H 94 03/02/21 07:47 87 121/66 94 03/02/21 07:43 91 H 94 03/02/21 07:42 90 95 03/02/21 07:37 89 97 03/02/21 07:32 89 97 03/02/21 07:27 85 97 03/02/21 07:22 95 H 97 03/02/21 07:17 89 107/61 95 03/02/21 07:12 88 96 03/02/21 07:07 87 97 03/02/21 07:02 88 97 03/02/21 06:57 84 97 03/02/21 06:52 99 H 98 03/02/21 06:49 88 94 03/02/21 06:47 87 111/58 96 03/02/21 06:42 82 97 03/02/21 06:37 82 94 03/02/21 06:32 86 93 03/02/21 06:29 85 94 03/02/21 06:27 89 95 03/02/21 06:22 87 92 03/02/21 06:17 91 H 104/59 92 03/02/21 06:12 91 H 94 03/02/21 06:11 84 94 03/02/21 06:07 92 H 94 03/02/21 06:05 94 H 94 03/02/21 06:02 99 H 94 03/02/21 05:58 95 H 94 03/02/21 05:57 97 H 95 03/02/21 05:52 91 H 96 03/02/21 05:51 78 93 03/02/21 05:47 77 93 03/02/21 05:46 75 104/58 03/02/21 05:42 78 93 03/02/21 05:37 78 93 03/02/21 05:34 74 94 03/02/21 05:32 80 92 03/02/21 05:31 81 109/58 03/02/21 05:27 78 93 03/02/21 05:22 79 92 03/02/21 05:17 78 95 03/02/21 05:16 82 110/59 03/02/21 05:12 78 93 03/02/21 05:07 79 94 03/02/21 05:02 76 93 03/02/21 05:01 75 101/58 03/02/21 04:57 78 93 03/02/21 04:52 82 93 03/02/21 04:47 89 95 03/02/21 04:46 97 H 98/56 03/02/21 04:45 77 94 03/02/21 04:42 79 96 03/02/21 04:39 80 94 03/02/21 04:37 81 95 03/02/21 04:33 86 93 03/02/21 04:32 80 103/57 96 03/02/21 04:27 82 92 03/02/21 04:22 77 91 03/02/21 04:21 78 94 03/02/21 04:17 77 95 03/02/21 04:16 74 81/52 94 03/02/21 04:12 75 95 03/02/21 04:09 87 94 03/02/21 04:07 77 94 03/02/21 04:03 76 94 03/02/21 04:02 73 95 03/02/21 04:01 75 100/57 03/02/21 03:57 76 95 03/02/21 03:55 78 93 03/02/21 03:52 80 93 03/02/21 03:50 76 94 03/02/21 03:47 77 94 03/02/21 03:46 77 94/52 03/02/21 03:43 79 94 03/02/21 03:42 81 94 03/02/21 03:37 75 95 03/02/21 03:32 72 95 03/02/21 03:31 76 100/58 94 03/02/21 03:27 75 95 03/02/21 03:26 77 94 03/02/21 03:22 77 94 03/02/21 03:20 76 94 03/02/21 03:17 74 95 03/02/21 03:16 81 101/55 03/02/21 03:15 76 94 03/02/21 03:12 77 95 03/02/21 03:09 75 94 03/02/21 03:07 74 95 03/02/21 03:04 79 93 03/02/21 03:02 81 94 03/02/21 03:01 78 98/57 03/02/21 02:58 76 94 03/02/21 02:57 75 95 03/02/21 02:52 78 94 03/02/21 02:47 74 95 03/02/21 02:46 74 96/51 94 03/02/21 02:42 77 95 03/02/21 02:40 79 94 03/02/21 02:37 80 94 03/02/21 02:34 77 94 03/02/21 02:32 72 95 03/02/21 02:31 80 104/56 03/02/21 02:28 77 94 03/02/21 02:27 78 95 03/02/21 02:23 76 94 03/02/21 02:22 79 95 03/02/21 02:18 86 93 03/02/21 02:17 79 113/57 95 03/02/21 02:12 82 94 03/02/21 02:07 82 97 03/02/21 02:02 78 95 03/02/21 02:01 79 96/52 94 03/02/21 01:57 71 96 03/02/21 01:52 73 95 03/02/21 01:47 83 95 03/02/21 01:46 83 99/54 03/02/21 01:42 76 95 03/02/21 01:41 77 94 03/02/21 01:37 77 95 03/02/21 01:35 75 94 03/02/21 01:32 81 95 03/02/21 01:31 75 94/50 03/02/21 01:27 78 95 03/02/21 01:22 74 96 03/02/21 01:17 78 95 03/02/21 01:16 82 95/54 03/02/21 01:12 76 96 03/02/21 01:07 80 95 03/02/21 01:02 79 95 03/02/21 01:01 83 93/51 03/02/21 00:59 84 94 03/02/21 00:57 86 95 03/02/21 00:52 89 96 03/02/21 00:47 80 93 03/02/21 00:46 84 99/55 03/02/21 00:45 81 94 03/02/21 00:42 86 96 03/02/21 00:37 92 H 91 03/02/21 00:32 79 93 03/02/21 00:31 83 94/50 94 03/02/21 00:27 83 93 03/02/21 00:22 81 94 03/02/21 00:17 85 94 03/02/21 00:16 80 92/50 03/02/21 00:12 88 92 03/02/21 00:11 84 93 03/02/21 00:07 84 93 03/02/21 00:02 83 93 03/02/21 00:01 77 89/52 03/01/21 23:58 93 H 93 03/01/21 23:57 87 95 03/01/21 23:52 83 94 03/01/21 23:50 83 94 03/01/21 23:47 81 94 03/01/21 23:46 81 90/53 03/01/21 23:45 82 94 03/01/21 23:42 78 94 03/01/21 23:37 77 95 03/01/21 23:36 78 94 03/01/21 23:32 81 94 03/01/21 23:31 83 92/54 94 03/01/21 23:27 74 96 03/01/21 23:24 82 94 03/01/21 23:22 80 94 03/01/21 23:18 86 94 03/01/21 23:17 72 96 03/01/21 23:16 80 91/54 03/01/21 23:12 79 94 03/01/21 23:11 79 94 03/01/21 23:07 86 94 03/01/21 23:06 78 94 03/01/21 23:02 72 95 03/01/21 23:01 77 92/50 03/01/21 23:00 81 94 03/01/21 22:57 82 95 03/01/21 22:53 81 94 03/01/21 22:52 80 94 03/01/21 22:47 80 109/65 94 03/01/21 22:42 79 94 03/01/21 22:37 79 95 03/01/21 22:35 76 94 03/01/21 22:32 80 94 03/01/21 22:31 78 92/50 03/01/21 22:29 79 94 03/01/21 22:27 76 95 03/01/21 22:24 84 93 03/01/21 22:22 86 95 03/01/21 22:18 86 94 03/01/21 22:17 90 125/54 95 03/01/21 22:12 99 H 96 03/01/21 22:07 80 96 03/01/21 22:02 78 97 03/01/21 22:01 76 113/59 03/01/21 21:57 90 96 03/01/21 21:52 80 97 03/01/21 21:47 81 97 03/01/21 21:46 72 111/58 03/01/21 21:42 79 97 03/01/21 21:37 79 96 03/01/21 21:32 78 123/67 97 03/01/21 21:27 81 97 03/01/21 21:22 82 96 03/01/21 21:17 84 140/81 98 03/01/21 21:12 94 H 98 03/01/21 21:07 76 98 03/01/21 21:03 80 171/88 03/01/21 21:02 71 97 03/01/21 21:01 71 171/88 03/01/21 20:57 76 97 03/01/21 20:52 68 97 03/01/21 20:47 68 164/83 97 03/01/21 20:42 67 97 03/01/21 20:37 71 98 03/01/21 20:32 75 97 03/01/21 20:29 78 175/85 03/01/21 20:27 64 97 03/01/21 20:22 72 97 03/01/21 20:18 74 175/85 03/01/21 20:17 80 98 03/01/21 20:00 69 16 138/99 97 03/01/21 19:45 64 15 160/85 97 03/01/21 19:25 70 72 H 147/89 97 03/01/21 19:15 82 17 146/74 96 03/01/21 19:05 97.5 F L 88 15 139/83 97 03/01/21 17:51 85 98 03/01/21 17:46 86 96 03/01/21 17:42 80 94 03/01/21 17:41 88 121/72 96 03/01/21 17:36 83 94 03/01/21 17:31 87 96 03/01/21 17:26 82 97 03/01/21 17:21 71 95 03/01/21 17:17 74 94 03/01/21 17:16 87 97 03/01/21 17:11 86 134/84 97 03/01/21 17:06 90 98 03/01/21 17:01 71 97 03/01/21 16:56 71 99 03/01/21 16:51 67 98 03/01/21 16:46 66 97 03/01/21 16:41 68 134/72 98 03/01/21 16:36 74 98 03/01/21 16:31 72 98 03/01/21 16:26 78 99 03/01/21 16:21 96 H 98 03/01/21 16:16 70 97 03/01/21 16:11 67 125/69 97 03/01/21 16:06 74 98 03/01/21 16:01 69 97 03/01/21 15:56 69 97 03/01/21 15:51 80 98 03/01/21 15:46 68 97 03/01/21 15:41 67 137/71 98 03/01/21 15:36 76 97 03/01/21 15:31 74 97 03/01/21 15:26 66 98 03/01/21 15:21 70 98 03/01/21 15:16 71 98 03/01/21 15:11 77 137/84 99 03/01/21 15:06 74 98 03/01/21 15:01 68 99 03/01/21 14:56 73 96 03/01/21 14:51 68 96 03/01/21 14:46 73 98 03/01/21 14:41 80 110/88 99 03/01/21 14:36 77 99 03/01/21 14:31 88 98 03/01/21 14:30 78 94 03/01/21 14:26 69 98 03/01/21 14:21 69 97 03/01/21 14:16 72 97 03/01/21 14:12 65 96/52 03/01/21 14:11 74 98 03/01/21 14:06 89 99 03/01/21 14:01 88 98 03/01/21 13:56 79 98 03/01/21 13:51 81 98 03/01/21 13:46 82 97 03/01/21 13:41 76 131/83 96 03/01/21 13:36 82 98 03/01/21 13:31 86 99 03/01/21 13:26 80 98 03/01/21 13:21 79 97 03/01/21 13:16 78 97 03/01/21 13:11 75 168/93 97 03/01/21 13:06 76 99 03/01/21 13:01 76 100 03/01/21 12:56 77 99 03/01/21 12:51 82 99 03/01/21 12:46 78 99 03/01/21 12:41 73 99 03/01/21 12:36 79 99 03/01/21 12:31 105 H 99 03/01/21 12:26 99 H 99 03/01/21 12:21 71 97 03/01/21 12:16 74 98 03/01/21 12:11 72 142/81 99 03/01/21 12:06 78 98 03/01/21 12:01 73 97 03/01/21 11:56 82 98 03/01/21 11:51 68 98 03/01/21 11:46 73 98 03/01/21 11:41 78 142/78 98 03/01/21 11:36 74 98 03/01/21 11:31 86 98 03/01/21 11:26 84 99 03/01/21 11:21 79 98 03/01/21 11:16 87 99 03/01/21 11:11 82 132/65 96 03/01/21 11:10 81 130/61 03/01/21 11:09 79 130/61 03/01/21 11:07 86 94 03/01/21 11:06 81 97 03/01/21 11:01 80 96 03/01/21 10:56 77 96 03/01/21 10:51 79 96 03/01/21 10:46 83 98 03/01/21 10:41 75 116/61 98 03/01/21 10:36 77 99 03/01/21 10:31 97 H 97 03/01/21 10:26 76 98 03/01/21 10:21 78 98 03/01/21 10:16 81 98 03/01/21 10:11 81 137/74 99 03/01/21 10:06 80 98 03/01/21 10:01 80 98 03/01/21 09:56 79 99 03/01/21 09:51 83 98 03/01/21 09:46 104 H 98 03/01/21 09:41 90 143/69 98 03/01/21 09:36 88 98 03/01/21 09:31 89 98 03/01/21 09:26 70 97 03/01/21 09:21 71 98 03/01/21 09:16 73 97 03/01/21 09:12 78 138/71 03/01/21 09:11 76 98 03/01/21 09:06 70 96 03/01/21 09:01 77 97 03/01/21 08:56 77 97 03/01/21 08:52 84 94 03/01/21 08:51 84 96 03/01/21 08:46 83 95 03/01/21 08:45 77 93 03/01/21 08:41 68 148/72 95 03/01/21 08:40 74 93 03/01/21 08:36 69 95 03/01/21 08:34 81 93 03/01/21 08:31 72 95 03/01/21 08:29 81 94 03/01/21 08:26 72 96 03/01/21 08:24 72 94 03/01/21 08:21 72 96 03/01/21 08:16 74 96 Intake and Output 03/01/21 03/02/21 03/02/21 23:59 07:59 15:59 Intake Total 1021.667 Output Total 260 1010 Balance 761.667 -1010 Intake: IV 1021.667 CLEOCIN 600 MG/50 mL 600 50 mg In 50 ml @ 100 mls/hr IV Q8H [facility] Rx#:[id number] MAGNESIUM SULFATE 40GM/ 871.667 1000ML 40 gm In 1,000 ml @ 2 GM/HR 50 mls/hr IV DIRECT [facility] Rx#:[id number] Output: Urine 260 1010 Indwelling Catheter 160 1010 Other: Total, Output Amount 110 410 - Labs Labs: Abnormal lab results 03/02/21 03/02/21 Range/Units 00:50 05:52 Magnesium 5.90 H 6.40 H (1.7-2.3) mg/dL
[2021-03-02] MEDS: LACTATED RINGERS 1,000 ML IV SCH (12:30)
[2021-03-03 13:48] VITALS: BP 130/69
--- NOTE | 2021-03-03 14:38 | Discharge Summary ---
Providers - Providers Date of Admission: 03/01/21 11:35 Date of discharge: 03/03/21 Attending physician: IKE HERNANDEZ Primary care physician: NEIL MCINTYRE MD Hospitalization Reason for admission: IUFD (IUP at 17.1wks; ), other (Chronic HTN, h/o preeclampsia ) Delivery: (breech delivered 03/01/21) Procedure: other (Dilatation and Curettage for retained products done on 03/01/[address] Wiggins) Episiotomy: none Laceration: none complications: retained placenta Discharge diagnosis: intrapartum demise (and Dilatation and Curettage for retained placenta) [place] baby: male Hospital course: Pt admitted for induction of IUFD and pt given cytotec 400mcg orally with successful vag delivery. Retained placenta had to be removed surgically by dilatation and curettage later that same day on 03/01/21. Pt was kept on labetalol med 200mg bid and treated with mag sulfate for 24hrs post delivery. Pt was given discharge instruction to follow up in 1wk with her clinic covered by [facility]. All questions encouraged and answered. Condition at discharge: Good Disposition: 01 HOME / SELF CARE / HOMELESS - Discharge Diagnoses (1) IUFD at less than 20 weeks of gestation Status: Acute (2) Retained placenta Status: Acute (3) S/P dilatation and curettage Status: Acute Plan - Discharge Medications Prescriptions: labetaloL [Labetalol 200mg TAB] 200 mg PO BID #60 tablet labetaloL [Labetalol 200mg TAB] 200 mg PO BID 30 Days #60 tablet - Provider Discharge Summary Additional instructions: [] Smoking cessation referral if applicable(refer to patient education folder for contact #) [] Refer to [facility] Booklet Call your doctor immediately for: * Fever > 100.5 * Heavy vaginal bleeding ( >1 pad per hour) * Severe persistent headache * Shortness of breath * Reddened, hot, painful area to leg or breast * Drainage or odor from incision. * Keep incision clean and dry at all times and follow doctor's instructions regarding bathing/showering - Follow up plan Follow up: PRIMARY CARE, [Primary Care Provider] - 14 Days SUN WIGGINS JR, MD [Staff Physician] - 7 Days Forms: [facility] Discharge Summary
== END 2021-03-03 14:20 | disposition home or self-care (01) | DRG 770 ==
LOC: TRG 21:29 → LD 23:16 → TRG 03-01 11:29 → LD 03-01 11:35
PROVIDERS: ADMIT Obstetrics & Gynecology; ATTEND Obstetrics & Gynecology
PROC: 10E0XZZ Delivery of Products of Conception, External Approach (ICD-10-PCS; principal; 2021-03-01)
PROC: 10D17ZZ Extraction of Products of Conception, Retained, Via Natural or Artificial Opening (ICD-10-PCS; 2021-03-01)
PROC: 3E033VJ Introduction of Other Hormone into Peripheral Vein, Percutaneous Approach (ICD-10-PCS; 2021-03-01)
DX: O02.1 Missed abortion (principal); Z20.822 Contact with and (suspected) exposure to COVID-19; Z3A.17 17 weeks gestation of pregnancy
CPT/HCPCS: 36415; 76998; 80048; 80053; 80076; 82565; 83615; 83735; 84550; 85014; 85018; 85027; 85610; 85730; 86592; 86850; 86900; 86901; 88305; G0378; J0360; J1885; J2250; J2405; J2704; J3010; J3475; J3490; J7030; J7120; U0003